=== PATIENT | female | born 1940 | race Caucasian/White ===

== ENCOUNTER 2021-04-12 16:40 | Emergency (ER) | payer MEDICARE, OTHER ==
[~2021-04-12] VITALS: Ht 233.7 cm; Wt 96.0 kg
[~2021-04-12 16:40] MED LIST: ACET-812 PO; ASPI-845 PO; BIMA2.5D EACHEYE; BIOT5TAB PO; CALC-499 PO; CHOL100046 PO; CHOL400T32 PO; DIAZ5TAB PO; DIO80T PO; DOCU-348 PO; ESOM40CA49 PO; FURO-149 PO; HYDR-4383 PO; IRON SUPPLEMENT; LORA1TAB PO; MIANS NS; MYLANTA; OMEG1CAP21 PO; ONDA4TAB6 PO; POTA10TA15 PO; PREVCR VG; [UNRECOGNIZED DRUG - CODE] PO
[2021-04-12 18:42] LABS: HEMOGLOBIN 17.2 g/dl (12.0-16.0); MEAN PLATELET VOLUME 7.2 FL (7.4-10.4)
[2021-04-12 18:45] LABS: BASOPHILS # (AUTO) 0.1 X10'3 (0-0.2); BASOPHILS % (AUTO) 0.3 % (0-1); EOSINOPHILS % (AUTO) 0.1 % (0-6); LYMPHOCYTES # (AUTO) 0.6 X10'3 (1.1-4.8); LYMPHOCYTES % (AUTO) 3.5 % (21-51); MEAN CORPUSCULAR HEMOGLOBIN 29.7 PG (27.0-31.0); MEAN CORPUSCULAR HGB CONC 33.1 g/dL (33.0-36.5); MEAN CORPUSCULAR VOLUME 89.7 FL (78-98); MONOCYTES # (AUTO) 0.7 X10'3 (0-0.9); MONOCYTES % (AUTO) 4.3 % (2-12); NEUTROPHILS % (AUTO) 91.8 % (42-75); PLATELET COUNT 247 X10'3 (140-440); RED CELL DISTRIBUTION WIDTH 16.3 % (11.5-14.5); WHITE BLOOD COUNT 17.4 X10'3 (4.5-11.0)
[2021-04-12 18:56] LABS: PARTIAL THROMBOPLASTIN TIME 27 SECONDS (22-32)
[2021-04-12 19:00] LABS: CLARITY,URINE SLIGHTLY CLOUDY (Clear); COLOR,URINE YELLOW (Yellow); GLUCOSE, URINE NEGATIVE (Neg); KETONES,URINE NEGATIVE (Neg); OCCULT BLOOD,URINE SMALL (Neg); PROTEIN,URINE 100 mg/dl (Neg); UA COLLECTION TYPE CLN CATCH MIDSTREAM
[2021-04-12 19:01] LABS: LEUKOCYTE ESTERASE ,URINE NEGATIVE (Neg); NITRITES, URINE NEGATIVE (Neg); UROBILINOGEN,URINE 0.2 E.U/dL (0.2-1.0)
[2021-04-12 19:03] LABS: BACTERIA,URINE FEW /HPF (Neg); MUCUS STRANDS NONE SEEN /LPF (Neg); SQUAMOUS EPITHELIAL CELL,UR FEW /LPF (FEW); WBC,URINE 0-4 /HPF (0-4)
[2021-04-12 19:03] LABS: ALANINE AMINOTRANSFERASE 25 U/L (12-78); ALBUMIN 3.7 G/DL (3.4-5.0); ALBUMIN/GLOBULIN RATIO 0.9 (1.1-1.5); ALKALINE PHOSPHATASE 75 IU/L (46-116); ANION GAP 11 (8-16); ASPARTATE AMINO TRANSFERASE 24 U/L (10-37); BILIRUBIN,TOTAL 0.7 MG/DL (0.1-1.0); BLOOD UREA NITROGEN 16 MG/DL (7-18); BUN/CREATININE RATIO 16.8 (6.6-38.0); CHLORIDE 102 MMOL/L (99-107); CREATININE 0.95 MG/DL (0.40-0.90); GLUCOSE 143 MG/DL (70-104); POTASSIUM 3.8 MMOL/L (3.5-5.1); SODIUM 140 MMOL/L (135-145); TOTAL CARBON DIOXIDE 26.8 MMOL/L (24-32); eGFR 56 ML/MIN
[2021-04-12 19:04] LABS: AMORPHOUS PHOSPHATES 1+
[2021-04-12] MEDS ORDERED: iohexol 300mg/ml 100ml inj. ONE (19:14)
[2021-04-12] MEDS: proCHLORperazine 10 MG/2 ml inj IV ONE (19:32)
[2021-04-12 19:42] LABS: PLATELET ESTIMATE NORMAL; TOTAL CELLS COUNTED 100
[2021-04-12 19:43] LABS: ANISOCYTOSIS 1+
--- NOTE | 2021-04-12 19:47 | NUR ---
Notified doctor of patient's elevated BP of 198/80. Doctor acknowledged. No new orders at this time.
[2021-04-12] MEDS ORDERED: AMLO1CAP77 PO (19:49)
[2021-04-12] MEDS ORDERED: LOSA25TA96 PO (19:52)
[2021-04-12] MEDS ORDERED: CIPR-259 PO (21:44)
[2021-04-12 22:29] VITALS: BP 113/60
== END 2021-04-12 22:31 | disposition home or self-care (01) ==
LOC: ER 16:40
DX: K52.9 Noninfective gastroenteritis and colitis, unspecified (principal); I10 Essential (primary) hypertension; Z98.890 Other specified postprocedural states; Z88.2 Allergy status to sulfonamides; Z88.8 Allergy status to other drugs, medicaments and biological substances; Z79.899 Other long term (current) drug therapy; Z79.82 Long term (current) use of aspirin
CPT/HCPCS: 36415; 74177; 80053; 81001; 84484; 85007; 85025; 85610; 85730; 86885; 86900; 86901; 93005; 96374; 99285; J0780; Q9967

== ENCOUNTER 2021-04-27 11:45 | Emergency (ER) | payer MEDICARE, OTHER ==
[~2021-04-27] VITALS: Ht 160 cm; Wt 97.7 kg
[~2021-04-27 11:45] MED LIST changes: +AMLO1CAP77 PO; +LOSA25TA96 PO
[2021-04-27 12:05] VITALS: BP 156/62
[2021-04-27 12:23] LABS: CLARITY,URINE CLEAR (Clear); GLUCOSE, URINE NEGATIVE (Neg); KETONES,URINE NEGATIVE (Neg); LEUKOCYTE ESTERASE ,URINE NEGATIVE (Neg); NITRITES, URINE NEGATIVE (Neg); OCCULT BLOOD,URINE NEGATIVE (Neg); PROTEIN,URINE NEGATIVE (Neg); UROBILINOGEN,URINE 0.2 E.U/dL (0.2-1.0)
[2021-04-27 12:24] LABS: COLOR,URINE STRAW (Yellow); UA COLLECTION TYPE NON-SPECIFIED
[2021-04-27 12:32] LABS: BASOPHILS % (AUTO) 0.3 % (0-1); EOSINOPHILS % (AUTO) 0.8 % (0-6); HEMATOCRIT 43.6 % (35.0-45.0); HEMOGLOBIN 14.2 g/dl (12.0-16.0); LYMPHOCYTES # (AUTO) 0.6 X10'3 (1.1-4.8); LYMPHOCYTES % (AUTO) 11.2 % (21-51); MEAN CORPUSCULAR HEMOGLOBIN 29.2 PG (27.0-31.0); MEAN CORPUSCULAR HGB CONC 32.6 g/dL (33.0-36.5); MEAN CORPUSCULAR VOLUME 89.8 FL (78-98); MEAN PLATELET VOLUME 6.8 FL (7.4-10.4); MONOCYTES % (AUTO) 18.9 % (2-12); NEUTROPHILS # (AUTO) 3.8 X10'3 (1.8-7.7); NEUTROPHILS % (AUTO) 68.8 % (42-75); PLATELET COUNT 337 X10'3 (140-440); RED BLOOD COUNT 4.86 X10'6 (4.20-5.60); RED CELL DISTRIBUTION WIDTH 15.8 % (11.5-14.5); WHITE BLOOD COUNT 5.5 X10'3 (4.5-11.0)
--- NOTE | 2021-04-27 12:33 | NUR ---
Voided x 2 per bedside commode. Pt took immodium prior to coming to the ER.
[2021-04-27 12:48] LABS: ALANINE AMINOTRANSFERASE 27 U/L (12-78); ALBUMIN 2.7 G/DL (3.4-5.0); ALBUMIN/GLOBULIN RATIO 0.6 (1.1-1.5); ALKALINE PHOSPHATASE 102 IU/L (46-116); ANION GAP 9 (8-16); ASPARTATE AMINO TRANSFERASE 23 U/L (10-37); BILIRUBIN,TOTAL 0.4 MG/DL (0.1-1.0); BLOOD UREA NITROGEN 17 MG/DL (7-18); BUN/CREATININE RATIO 16.7 (6.6-38.0); CALCIUM 8.4 MG/DL (8.5-10.1); CHLORIDE 102 MMOL/L (99-107); CREATININE 1.02 MG/DL (0.40-0.90); GLUCOSE 118 MG/DL (70-104); LIPASE < 50 U/L (73-393); POTASSIUM 4.1 MMOL/L (3.5-5.1); SODIUM 137 MMOL/L (135-145); TOTAL CARBON DIOXIDE 25.8 MMOL/L (24-32); TOTAL PROTEIN 6.9 G/DL (6.4-8.2); eGFR 52 ML/MIN
[2021-04-27 12:57] LABS: PLATELET ESTIMATE NORMAL; TOTAL CELLS COUNTED 100
[2021-04-27] MEDS ORDERED: LOSA50TA3 PO (12:58)
[2021-04-27] MEDS ORDERED: LOPE-190 (12:58)
[2021-04-27] MEDS ORDERED: BIFI4CAP PO (12:58)
[2021-04-27] MEDS ORDERED: metroNIDAZOLE-Flagyl 500mg/NS 100 ML IV STA (14:58)
[2021-04-27] MEDS ORDERED: normal saline 1000ML IV soln IVB ONE (15:00)
[2021-04-27] MEDS ORDERED: iohexol 300mg/ml 100ml inj. ONE (15:59)
[2021-04-27] MEDS ORDERED: LEVO500T90 PO (17:48)
[2021-04-27] MEDS ORDERED: METR-159 PO (17:48)
[2021-04-27] MEDS ORDERED: levoFLOXACIN 250mg tablet PO ONE (18:40)
== END 2021-04-27 19:15 | disposition home or self-care (01) ==
LOC: ER 11:46
DX: K52.9 Noninfective gastroenteritis and colitis, unspecified (principal); R19.7 Diarrhea, unspecified; I11.0 Hypertensive heart disease with heart failure; Z85.9 Personal history of malignant neoplasm, unspecified; Z79.2 Long term (current) use of antibiotics; Z79.899 Other long term (current) drug therapy; Z88.8 Allergy status to other drugs, medicaments and biological substances; Z88.2 Allergy status to sulfonamides; Z91.018 Allergy to other foods
CPT/HCPCS: 74177; 80053; 81003; 83690; 85007; 85025; 96365; 96366; 99285; J3490; J7030; Q9967

== ENCOUNTER 2021-08-15 12:16 | Inpatient (IN) | payer MEDICARE, OTHER ==
[~2021-08-15] VITALS: Ht 162.6 cm; Wt 96.4 kg
[~2021-08-15 12:16] MED LIST changes: -ASPI-845 PO; +BIFI4CAP PO; -CHOL400T32 PO; -DIO80T PO; +LOPE-190; +LOSA50TA3 PO; -OMEG1CAP21 PO
[2021-08-15 13:44] LABS: CLARITY,URINE CLOUDY (Clear); COLOR,URINE YELLOW (Yellow); GLUCOSE, URINE NEGATIVE (Neg); KETONES,URINE NEGATIVE (Neg); LEUKOCYTE ESTERASE ,URINE TRACE (Neg); NITRITES, URINE NEGATIVE (Neg); OCCULT BLOOD,URINE SMALL (Neg); PH,URINE 6.5 (4.8-8.0); PROTEIN,URINE 100 mg/dl (Neg); UROBILINOGEN,URINE 0.2 E.U/dL (0.2-1.0)
[2021-08-15 13:46] LABS: URINE HCG NEGATIVE (NEG)
[2021-08-15 13:47] LABS: UA COLLECTION TYPE OTHER
[2021-08-15 13:58] LABS: BASOPHILS % (AUTO) 0.1 % (0-1); EOSINOPHILS # (AUTO) 0.1 X10'3 (0-0.9); EOSINOPHILS % (AUTO) 1.1 % (0-6); HEMOGLOBIN 15.3 g/dl (12.0-16.0); LYMPHOCYTES # (AUTO) 0.7 X10'3 (1.1-4.8); LYMPHOCYTES % (AUTO) 6.8 % (21-51); MEAN CORPUSCULAR HEMOGLOBIN 27.7 PG (27.0-31.0); MEAN CORPUSCULAR HGB CONC 32.6 g/dL (33.0-36.5); MEAN PLATELET VOLUME 6.9 FL (7.4-10.4); MONOCYTES # (AUTO) 0.6 X10'3 (0-0.9); NEUTROPHILS # (AUTO) 9.1 X10'3 (1.8-7.7); PLATELET COUNT 354 X10'3 (140-440); RED BLOOD COUNT 5.53 X10'6 (4.20-5.60); RED CELL DISTRIBUTION WIDTH 17.6 % (11.5-14.5); WHITE BLOOD COUNT 10.5 X10'3 (4.5-11.0)
[2021-08-15 14:01] LABS: BACTERIA,URINE 2+ /HPF (Neg); HYALINE CASTS 0-3 /LPF (NEGATIVE); MUCUS STRANDS FEW /LPF (Neg); RBC,URINE 0-2 /HPF (0-2); SQUAMOUS EPITHELIAL CELL,UR FEW /LPF (FEW); WBC,URINE 0-4 /HPF (0-4)
[2021-08-15 14:18] LABS: ALANINE AMINOTRANSFERASE 16 U/L (12-78); ALBUMIN 3.5 G/DL (3.4-5.0); ALBUMIN/GLOBULIN RATIO 0.8 (1.1-1.5); ALKALINE PHOSPHATASE 66 IU/L (46-116); ANION GAP 6 (8-16); ASPARTATE AMINO TRANSFERASE 19 U/L (10-37); BILIRUBIN,TOTAL 0.3 MG/DL (0.1-1.0); BLOOD UREA NITROGEN 17 MG/DL (7-18); CALCIUM 8.7 MG/DL (8.5-10.1); CHLORIDE 105 MMOL/L (99-107); CREATININE 0.74 MG/DL (0.40-0.90); GLUCOSE 127 MG/DL (70-104); LIPASE 117 U/L (73-393); SODIUM 138 MMOL/L (135-145); TOTAL PROTEIN 7.8 G/DL (6.4-8.2); eGFR 75 ML/MIN
[2021-08-15] MEDS ORDERED: cefTRIAXone 1g/NS 100ml IVPB 100 ML IV ONE (16:50)
[2021-08-15] MEDS ORDERED: morphine 4 MG/ML inj SYRINge IV ONE (17:00)
[2021-08-15] MEDS ORDERED: hydrALAZINE 20mg/ml inj. IV ONE (17:05)
[2021-08-15] MEDS ORDERED: acetaminophen 325mg tablet PO ONE (18:40)
[2021-08-15] MEDS ORDERED: proCHLORperazine 10 MG/2 ml inj IV ONE (18:40)
[2021-08-15] MEDS ORDERED: normal saline 1000ml 1,000 ML IV ONE (18:40)
[2021-08-15] MEDS ORDERED: ketorolac trometh. 30mg/ml inj. IV ONE (18:40)
[2021-08-15 21:25] LABS: URINE AMPHETAMINE SCREEN NEGATIVE (Neg); URINE BARBITUATE SCREEN NEGATIVE (Neg); URINE BENZODIAZEPINES SCREEN NEGATIVE (Neg); URINE CANNABINOID SCREEN NEGATIVE (Neg); URINE COCAINE SCREEN NEGATIVE (Neg); URINE METHADONE SCREEN NEGATIVE (Neg); URINE OPIATE SCREEN POSITIVE (Neg); URINE PHENCYCLIDINE SCREEN NEGATIVE (Neg)
[2021-08-15] MEDS ORDERED: acetaminophen 325mg tablet PO PRN ×2 (21:30)
[2021-08-15] MEDS ORDERED: bisacodyl 10mg suppository rectal RC PRN (21:30)
[2021-08-15] MEDS ORDERED: magnesium 2GM in 50ml NS 50 ML IV PRN (21:30)
[2021-08-15] MEDS ORDERED: potassium Cl 20 mEq SR tablet PO PRN (21:30)
[2021-08-15] MEDS ORDERED: morphine 2 MG/ML inj. syringe IV PRN (21:30)
[2021-08-15] MEDS ORDERED: magnesium Cl slow-release 64mg tablet PO PRN (21:30)
[2021-08-15] MEDS ORDERED: ondansetron/PF 4mg/2ml inj IV PRN (21:30)
[2021-08-15] MEDS ORDERED: potassium CL 10mEq/100ml bag 100 ML IV PRN (21:30)
[2021-08-15] MEDS ORDERED: magnesium 4gm in 100ml NS 100 ML IV PRN (21:30)
[2021-08-15] MEDS ORDERED: mag hydrox/Alum hydrox/simeth 30ml oral suspension PO PRN (21:30)
[2021-08-15] MEDS ORDERED: magnesium hydroxide 30ml (MOM) UD suspension PO PRN (21:30)
[2021-08-15] MEDS: losartan 50mg tablet PO SCH (22:03)
[2021-08-15] MEDS: ciprofloxacin 250mg tablet PO SCH (22:03)
[2021-08-15] MEDS: normal saline 1000ml 1,000 ML IV SCH ×2 (22:04→23:35)
[2021-08-15] MEDS ORDERED: AMLO5TAB16 PO (22:33)
[2021-08-15] MEDS: latanoprost 0.005% 2.5ml ophthalmic drops EACHEYE SCH (22:52)
--- NOTE | 2021-08-15 23:13 | NUR ---
REPORT GIVEN TO CHARGE NURSE 348
[2021-08-15 23:45] VITALS: BP 153/53
--- NOTE | 2021-08-16 06:58 | NUR ---
Patient in room RILEY 348. I have received report from Yokasta HARDEN and had the opportunity to ask questions and assume patient care. Pt in bed awake, skin check done together. No reports of needs, call light in reach, bed low 3 rails up.
[2021-08-16 07:00] VITALS: BP 155/95
--- NOTE | 2021-08-16 07:02 | NUR ---
Problems reprioritized. Patient report given, questions answered & plan of care reviewed with Maris Lopez. Addendum: 08/16/21 at 0702 by Mercedez Gill RN Amended: Links added.
[2021-08-16 07:04] LABS: BASOPHILS % (AUTO) 0.2 % (0-1); EOSINOPHILS % (AUTO) 0.4 % (0-6); HEMATOCRIT 44.3 % (35.0-45.0); HEMOGLOBIN 14.5 g/dl (12.0-16.0); LYMPHOCYTES # (AUTO) 0.7 X10'3 (1.1-4.8); LYMPHOCYTES % (AUTO) 6.9 % (21-51); MEAN CORPUSCULAR HEMOGLOBIN 28.1 PG (27.0-31.0); MEAN CORPUSCULAR HGB CONC 32.8 g/dL (33.0-36.5); MEAN CORPUSCULAR VOLUME 85.7 FL (78-98); MEAN PLATELET VOLUME 7.1 FL (7.4-10.4); MONOCYTES % (AUTO) 9.7 % (2-12); NEUTROPHILS # (AUTO) 8.1 X10'3 (1.8-7.7); NEUTROPHILS % (AUTO) 82.8 % (42-75); PLATELET COUNT 333 X10'3 (140-440); RED BLOOD COUNT 5.17 X10'6 (4.20-5.60); RED CELL DISTRIBUTION WIDTH 17.8 % (11.5-14.5); WHITE BLOOD COUNT 9.8 X10'3 (4.5-11.0)
[2021-08-16 07:18] LABS: ALANINE AMINOTRANSFERASE 14 U/L (12-78); ALBUMIN 3.3 G/DL (3.4-5.0); ALBUMIN/GLOBULIN RATIO 0.8 (1.1-1.5); ALKALINE PHOSPHATASE 59 IU/L (46-116); ANION GAP 7 (8-16); ASPARTATE AMINO TRANSFERASE 22 U/L (10-37); BILIRUBIN,TOTAL 0.5 MG/DL (0.1-1.0); BLOOD UREA NITROGEN 14 MG/DL (7-18); BUN/CREATININE RATIO 20.9 (6.6-38.0); CHLORIDE 107 MMOL/L (99-107); CREATININE 0.67 MG/DL (0.40-0.90); GLUCOSE 124 MG/DL (70-104); POTASSIUM 3.1 MMOL/L (3.5-5.1); SODIUM 138 MMOL/L (135-145); TOTAL CARBON DIOXIDE 23.6 MMOL/L (24-32); TOTAL PROTEIN 7.3 G/DL (6.4-8.2); eGFR 84 ML/MIN
[2021-08-16] MEDS: CALCITONIN NASAL SPRAY BOTHNARES SCH (08:00)
[2021-08-16] MEDS: losartan 50mg tablet PO SCH ×2 (08:31→12:00)
[2021-08-16] MEDS: amLODIPine 5mg tablet PO SCH (08:32)
[2021-08-16] MEDS: heparin, porcine 5000 units/ml vial SQ SCH ×2 (08:32→20:25)
[2021-08-16] MEDS: pantoprazole 40mg Tablet.DR PO SCH (08:32)
[2021-08-16] MEDS: metroNIDAZOLE-Flagyl 500mg/NS 100 ML IV SCH ×2 (08:33→20:24)
[2021-08-16] MEDS: latanoprost 0.005% 2.5ml ophthalmic drops EACHEYE SCH ×2 (08:38→08:43)
[2021-08-16] MEDS: potassium Cl 20 mEq SR tablet PO PRN ×3 (08:54→16:28)
[2021-08-16] MEDS: K and/or MAG REPLACEMENT MC SCH ×2 (08:55→20:00)
[2021-08-16] MEDS ORDERED: FLU VACC QS2021-22(6MOS UP)/PF 60 MCG/0.5 ML SYRINGE IM ONE (09:00)
--- NOTE | 2021-08-16 09:07 | NUR ---
Malnutrition consult; Pt admitted w/ uncontrolled hypertension per EMR. Pt unsure of wt loss per MST. current wt not scaled though consistent w/ previous scaled wt from 2016. Currently on Heart Healthy diet pending PO intake. No signs of muscle or fat wasting observed at bedside, no edema noted. At this time, pt does not meet minimum criteria for malnutrition. Addendum: 08/16/21 at [address] Amended: Links added.
[2021-08-16] MEDS: ciprofloxacin 250mg tablet PO SCH ×2 (10:19→20:46)
[2021-08-16] MEDS: normal saline 1000ml 1,000 ML IV SCH ×3 (10:22→20:31)
--- NOTE | 2021-08-16 11:37 | NUR ---
Problems reprioritized. Patient report given, questions answered & plan of care reviewed with Jennifer HARDEN.
[2021-08-16 13:08] VITALS: BP 146/80
[2021-08-16] MEDS ORDERED: PERFLUTREN PROTEIN-A MICROSPHR (Optison) 0.22 MG/ML 3ML VIAL IV ONE (16:05)
--- NOTE | 2021-08-16 16:10 | NUR ---
Paged and requested stroke neuro consult
[2021-08-16] MEDS: aspirin 81mg, enteric-coated 1 TAB TABLET.DR PO SCH (16:28)
[2021-08-16 16:57] LABS: CHOL/HDL RATIO 4.5 (0.00-4.99); CHOLESTEROL 191 MG/DL (0-200); HDL CHOLESTEROL 42 MG/DL (35-60); LDL CHOLESTEROL 131 MG/DL (50-100); TRIGLYCERIDES 91 MG/DL (20-135)
[2021-08-16] MEDS: psyllium seed 3.4 gm packet PO SCH (17:00)
--- NOTE | 2021-08-16 17:54 | NUR ---
Paged stroke team twice. Called Sweta Stroke Nurse at [phone]. SOC telemed is in pt's room. Endorsed and called report to DERECK Escobar for transfer.
--- NOTE | 2021-08-16 17:57 | NUR ---
MRI screening form and CT form filled and faxed. MRI stated cannot be done today as found suspicious metallic findings in lung CT.
--- NOTE | 2021-08-16 17:58 | NUR ---
Received report from Jennifer HARDEN.
--- NOTE | 2021-08-16 18:30 | NUR ---
Problems reprioritized. Patient report given, questions answered & plan of care reviewed with Bria HARDEN.
[2021-08-16] MEDS ORDERED: iohexol 350MG/ML 100ml bottle IV ONE (19:23)
--- NOTE | 2021-08-16 19:35 | NUR ---
pt has just had telemed. consult. She reports that she does not swallow well is pocketing food. Nurse notified to keep pt npo until speech therapy eval. in am. pt being transferred to telemetry bed.
[2021-08-16 22:00] VITALS: BP 163/128
[2021-08-17 02:00] VITALS: BP 177/92
--- NOTE | 2021-08-17 06:32 | NUR ---
Problems reprioritized. Patient report given, questions answered & plan of care reviewed with DERECK ARREDONDO.
--- NOTE | 2021-08-17 06:38 | NUR ---
Patient in room MED 316A. I have received report from DERECK DUNHAM and had the opportunity to ask questions and assume patient care.
[2021-08-17] MEDS: psyllium seed 3.4 gm packet PO SCH ×2 (07:00→17:00)
[2021-08-17 07:01] LABS: BASOPHILS % (AUTO) 0.2 % (0-1); EOSINOPHILS # (AUTO) 0.1 X10'3 (0-0.9); EOSINOPHILS % (AUTO) 0.9 % (0-6); HEMATOCRIT 46.8 % (35.0-45.0); HEMOGLOBIN 15.1 g/dl (12.0-16.0); LYMPHOCYTES # (AUTO) 0.8 X10'3 (1.1-4.8); MEAN CORPUSCULAR HEMOGLOBIN 27.3 PG (27.0-31.0); MEAN CORPUSCULAR HGB CONC 32.2 g/dL (33.0-36.5); MEAN CORPUSCULAR VOLUME 84.6 FL (78-98); MEAN PLATELET VOLUME 7.5 FL (7.4-10.4); MONOCYTES # (AUTO) 0.9 X10'3 (0-0.9); MONOCYTES % (AUTO) 8.2 % (2-12); NEUTROPHILS # (AUTO) 8.9 X10'3 (1.8-7.7); NEUTROPHILS % (AUTO) 83.7 % (42-75); PLATELET COUNT 364 X10'3 (140-440); RED BLOOD COUNT 5.53 X10'6 (4.20-5.60); WHITE BLOOD COUNT 10.6 X10'3 (4.5-11.0)
[2021-08-17 07:29] LABS: ALANINE AMINOTRANSFERASE 15 U/L (12-78); ALBUMIN 3.2 G/DL (3.4-5.0); ALBUMIN/GLOBULIN RATIO 0.8 (1.1-1.5); ALKALINE PHOSPHATASE 59 IU/L (46-116); ANION GAP 10 (8-16); ASPARTATE AMINO TRANSFERASE 25 U/L (10-37); BILIRUBIN,TOTAL 0.5 MG/DL (0.1-1.0); BLOOD UREA NITROGEN 16 MG/DL (7-18); CALCIUM 8.2 MG/DL (8.5-10.1); CHLORIDE 109 MMOL/L (99-107); GLUCOSE 127 MG/DL (70-104); POTASSIUM 4.1 MMOL/L (3.5-5.1); SODIUM 139 MMOL/L (135-145); TOTAL CARBON DIOXIDE 19.7 MMOL/L (24-32); TOTAL PROTEIN 7.1 G/DL (6.4-8.2); eGFR 69 ML/MIN
[2021-08-17 07:49] VITALS: BP 175/94
[2021-08-17] MEDS: K and/or MAG REPLACEMENT MC SCH ×2 (08:00→20:00)
[2021-08-17] MEDS: CALCITONIN NASAL SPRAY BOTHNARES SCH (08:00)
[2021-08-17 10:00] VITALS: BP 179/93
[2021-08-17] MEDS: ciprofloxacin 250mg tablet PO SCH ×2 (10:00→20:53)
[2021-08-17] MEDS: pantoprazole 40mg Tablet.DR PO SCH (10:00)
[2021-08-17] MEDS: aspirin 81mg, enteric-coated 1 TAB TABLET.DR PO SCH (10:00)
[2021-08-17] MEDS: heparin, porcine 5000 units/ml vial SQ SCH ×2 (10:01→20:11)
[2021-08-17] MEDS: metroNIDAZOLE-Flagyl 500mg/NS 100 ML IV SCH ×2 (10:02→20:11)
[2021-08-17] MEDS: amLODIPine 5mg tablet PO SCH (10:05)
[2021-08-17] MEDS: losartan 50mg tablet PO SCH (10:05)
[2021-08-17] MEDS: normal saline 1000ml 1,000 ML IV SCH ×2 (10:31→20:44)
--- NOTE | 2021-08-17 13:30 | NUR ---
In with doctor Espinoza. Patient and state she has had a [facility] before, at [facility]. And she sees a Dr. Jenkins at [facility]. Will call Imaging for a copy of what they have.
[2021-08-17 14:35] VITALS: BP 133/74
--- NOTE | 2021-08-17 15:07 | NUR ---
PAGER ID: [phone] MESSAGE: [phone] HenryMariselaLinda Patient had a [address] SCAN of the Chest and Abdomen at [facility] in 02/18/2017 Carbon Copy to Donte Escobar [id number]
[2021-08-17 18:10] VITALS: BP 181/86
--- NOTE | 2021-08-17 18:24 | NUR ---
Problems reprioritized. Patient report given, questions answered & plan of care reviewed with Bria HARDEN.
[2021-08-17] MEDS: latanoprost 0.005% 2.5ml ophthalmic drops EACHEYE SCH (20:11)
[2021-08-17 21:51] VITALS: BP 184/86
[2021-08-18 02:00] VITALS: BP 186/84
[2021-08-18 06:00] VITALS: BP 159/81
--- NOTE | 2021-08-18 06:35 | NUR ---
Problems reprioritized. Patient report given, questions answered & plan of care reviewed with fidel Velasquez and fidel Perez.
[2021-08-18] MEDS: psyllium seed 3.4 gm packet PO SCH ×3 (07:00→17:00)
--- NOTE | 2021-08-18 07:00 | NUR ---
Primary nurse not [facility] certified
[2021-08-18] MEDS: K and/or MAG REPLACEMENT MC SCH ×2 (08:00→20:00)
[2021-08-18] MEDS: CALCITONIN NASAL SPRAY BOTHNARES SCH (08:00)
[2021-08-18 08:15] LABS: ALANINE AMINOTRANSFERASE 16 U/L (12-78); ALBUMIN 2.9 G/DL (3.4-5.0); ALBUMIN/GLOBULIN RATIO 0.8 (1.1-1.5); ALKALINE PHOSPHATASE 55 IU/L (46-116); ANION GAP 11 (8-16); ASPARTATE AMINO TRANSFERASE 23 U/L (10-37); BILIRUBIN,TOTAL 0.4 MG/DL (0.1-1.0); BLOOD UREA NITROGEN 19 MG/DL (7-18); BUN/CREATININE RATIO 23.2 (6.6-38.0); CALCIUM 8.1 MG/DL (8.5-10.1); CHLORIDE 116 MMOL/L (99-107); CREATININE 0.82 MG/DL (0.40-0.90); GLUCOSE 132 MG/DL (70-104); SODIUM 146 MMOL/L (135-145); TOTAL PROTEIN 6.7 G/DL (6.4-8.2); eGFR 67 ML/MIN
[2021-08-18] MEDS: metroNIDAZOLE-Flagyl 500mg/NS 100 ML IV SCH ×2 (08:16→19:56)
[2021-08-18] MEDS: pantoprazole 40mg Tablet.DR PO SCH (08:18)
[2021-08-18] MEDS: heparin, porcine 5000 units/ml vial SQ SCH ×2 (08:18→19:51)
[2021-08-18] MEDS: losartan 50mg tablet PO SCH (08:19)
[2021-08-18] MEDS: aspirin 81mg, enteric-coated 1 TAB TABLET.DR PO SCH (08:19)
[2021-08-18] MEDS: amLODIPine 5mg tablet PO SCH (08:19)
[2021-08-18] MEDS: clopidogrel 75mg tablet PO SCH (08:19)
[2021-08-18 09:47] LABS: BASOPHILS % (AUTO) 0.2 % (0-1); EOSINOPHILS # (AUTO) 0.2 X10'3 (0-0.9); EOSINOPHILS % (AUTO) 1.8 % (0-6); HEMATOCRIT 45.5 % (35.0-45.0); HEMOGLOBIN 14.6 g/dl (12.0-16.0); LYMPHOCYTES # (AUTO) 0.7 X10'3 (1.1-4.8); LYMPHOCYTES % (AUTO) 5.9 % (21-51); MEAN CORPUSCULAR HEMOGLOBIN 27.7 PG (27.0-31.0); MEAN CORPUSCULAR HGB CONC 32.2 g/dL (33.0-36.5); MEAN PLATELET VOLUME 7.1 FL (7.4-10.4); MONOCYTES # (AUTO) 1.1 X10'3 (0-0.9); MONOCYTES % (AUTO) 8.7 % (2-12); NEUTROPHILS # (AUTO) 10.2 X10'3 (1.8-7.7); NEUTROPHILS % (AUTO) 83.4 % (42-75); PLATELET COUNT 327 X10'3 (140-440); RED BLOOD COUNT 5.29 X10'6 (4.20-5.60); RED CELL DISTRIBUTION WIDTH 18.5 % (11.5-14.5); WHITE BLOOD COUNT 12.2 X10'3 (4.5-11.0)
--- NOTE | 2021-08-18 10:00 | NUR ---
Patient vomited up quite a bit of green bile. Some crushed meds were visable. Suctioned patient and was able to remove several pieces of food from pockets in her mouth. No other vomiting episodes at of 1330
[2021-08-18] MEDS: normal saline 1000ml 1,000 ML IV SCH ×2 (10:34→19:57)
[2021-08-18] MEDS: ciprofloxacin 250mg tablet PO SCH ×2 (10:37→21:29)
[2021-08-18 11:00] VITALS: BP 158/92
--- NOTE | 2021-08-18 12:30 | NUR ---
Verbal order per Dr Espinoza, goal for patients BP is 150-190 systolic.
[2021-08-18] MEDS: lactose-reduced food (Ensure High Protein) 237ml bottle PO SCH ×2 (13:00→18:00)
--- NOTE | 2021-08-18 13:21 | NUR ---
Could not find patients nasal spray. Non-admin in MAR. Addendum: 08/18/21 at 1449 by Yessy Matos RN Pt educated on importance to ask family to bring nasal spray.
--- NOTE | 2021-08-18 13:56 | NUR ---
PRESSURE ULCER EDUCATION: DEFINITION: A pressure ulcer is an area of skin that breaks down when you stay in one position too long. The constant pressure against the skin reduces the blood flow to that area and the affected tissue dies. CAUSES: "Being bedridden or in a wheelchair "Fragile skin "Having a chronic condition, such as diabetes or vascular disease "Inability to move certain parts of your body without assistance "Older age "Incontinence of urine or stool SYMPTOMS: "A reddened area that DOES NOT turn white when pressed on - this can be the beginning of a pressure ulcer "A blister, deep sore or a crater - these can be advanced pressure ulcers FIRST AID: "Relieve the pressure on this area "Keep the area clean and dry "Call your primary doctor if you see any of the above symptoms "DO NOT massage the area "DO NOT use a donut shaped or ring shaped pillow- these actually interfere with the blood flow and cause complications PREVENTION: "Check for pressure ulcers everyday "Change position at least every two hours to relieve pressure "Use items that help relieve pressure- pillows, sheepskin, foam padding, and powders. "Keep skin clean and dry "Eat healthy well balanced meals "Exercise daily IF YOU SEE ANY OF THESE SYMPTOMS WHILE IN THE HOSPITAL - TELL YOUR NURSE IMMEDIATELY. IF YOU SEE ANY OF THESE SYMPTOMS WHILE AT HOME OR HAVE ANY QUESTIONS OR CONCERNS ABOUT PRESSURE ULCERS - CALL YOUR PRIMARY DOCTOR IMMEDIATELY. Addendum: 08/18/21 at 1357 by Talya Tavarez RN Amended: Links added.
[2021-08-18 15:00] VITALS: BP 157/93
--- NOTE | 2021-08-18 17:17 | NUR ---
Attempted to complete MRI screening form with patient, but she kept falling asleep. Several attempts were made, but patient is very tired after PT worked with her. Will pass off to installer apprentice to complete once patient wakes up.
[2021-08-18 18:00] VITALS: BP 156/79
[2021-08-18] MEDS: latanoprost 0.005% 2.5ml ophthalmic drops EACHEYE SCH (20:01)
[2021-08-18] MEDS: CefTRIAXone 2gm/NS 100ml IVPB 100 ML IV SCH (21:49)
[2021-08-18 22:16] VITALS: BP 183/97
--- NOTE | 2021-08-18 22:58 | NUR ---
Student documentation: I have reviewed interventions, assessments performed and documented by Miah LUBIN [facility].
[2021-08-19 02:00] VITALS: BP 180/76
[2021-08-19 06:00] VITALS: BP 164/123
[2021-08-19 07:41] LABS: BASOPHILS % (AUTO) 0.3 % (0-1); EOSINOPHILS # (AUTO) 0.3 X10'3 (0-0.9); EOSINOPHILS % (AUTO) 4.1 % (0-6); HEMATOCRIT 46.6 % (35.0-45.0); HEMOGLOBIN 15.1 g/dl (12.0-16.0); LYMPHOCYTES # (AUTO) 0.8 X10'3 (1.1-4.8); LYMPHOCYTES % (AUTO) 10.4 % (21-51); MEAN CORPUSCULAR HGB CONC 32.5 g/dL (33.0-36.5); MEAN CORPUSCULAR VOLUME 86.3 FL (78-98); MEAN PLATELET VOLUME 7.4 FL (7.4-10.4); MONOCYTES # (AUTO) 1.1 X10'3 (0-0.9); MONOCYTES % (AUTO) 14.4 % (2-12); NEUTROPHILS # (AUTO) 5.4 X10'3 (1.8-7.7); NEUTROPHILS % (AUTO) 70.8 % (42-75); PLATELET COUNT 312 X10'3 (140-440); RED CELL DISTRIBUTION WIDTH 18.4 % (11.5-14.5); WHITE BLOOD COUNT 7.6 X10'3 (4.5-11.0)
[2021-08-19] MEDS: psyllium seed 3.4 gm packet PO SCH ×2 (07:52→17:30)
[2021-08-19] MEDS: clopidogrel 75mg tablet PO SCH (07:52)
[2021-08-19] MEDS: losartan 50mg tablet PO SCH (07:52)
[2021-08-19] MEDS: amLODIPine 5mg tablet PO SCH (07:52)
[2021-08-19] MEDS: pantoprazole 40mg Tablet.DR PO SCH (07:52)
[2021-08-19] MEDS: heparin, porcine 5000 units/ml vial SQ SCH ×2 (07:53→19:30)
[2021-08-19] MEDS: metroNIDAZOLE-Flagyl 500mg/NS 100 ML IV SCH (07:56)
[2021-08-19] MEDS: aspirin 81mg tab.chew PO SCH (07:56)
[2021-08-19] MEDS: normal saline 1000ml 1,000 ML IV SCH (07:56)
[2021-08-19] MEDS: CefTRIAXone 2gm/NS 100ml IVPB 100 ML IV SCH (07:56)
[2021-08-19] MEDS: K and/or MAG REPLACEMENT MC SCH ×2 (08:00→19:30)
[2021-08-19] MEDS: CALCITONIN NASAL SPRAY BOTHNARES SCH (08:00)
[2021-08-19] MEDS: lactose-reduced food (Ensure High Protein) 237ml bottle PO SCH ×3 (08:07→18:13)
[2021-08-19 08:16] LABS: ALANINE AMINOTRANSFERASE 17 U/L (12-78); ALBUMIN 2.8 G/DL (3.4-5.0); ALBUMIN/GLOBULIN RATIO 0.7 (1.1-1.5); ALKALINE PHOSPHATASE 55 IU/L (46-116); ANION GAP 13 (8-16); ASPARTATE AMINO TRANSFERASE 22 U/L (10-37); BILIRUBIN,TOTAL 0.4 MG/DL (0.1-1.0); BLOOD UREA NITROGEN 17 MG/DL (7-18); BUN/CREATININE RATIO 22.4 (6.6-38.0); CALCIUM 8.1 MG/DL (8.5-10.1); CHLORIDE 116 MMOL/L (99-107); CREATININE 0.76 MG/DL (0.40-0.90); GLUCOSE 124 MG/DL (70-104); POTASSIUM 3.7 MMOL/L (3.5-5.1); SODIUM 149 MMOL/L (135-145); eGFR 73 ML/MIN
--- NOTE | 2021-08-19 09:46 | NUR ---
Initial: Pt admitted w/ possible CVA, proctitis, and uncontrolled hypertension per EMR, Currently on Puree/NTL per ENROLLMENT PROCESSOR recs and Heart healthy diet w/ low PO intake, avg 42% x 8 meals. Ensure High protein TID has been ordered 08/18 and pt has consumed 100% of first 2 ONS. If PO trends continue pt will be meeting 100% of est protein and energy needs. Recommend liberalizing to Regular diet given age and no significant diet-related cardiac hx in EMR, w/ Puree and NTL per ENROLLMENT PROCESSOR recs. Pt also noted to need feeder. LBM 08/17 w/ PRN bowel care given. No nutrition intervention implemented at this time, will continue to monitor. Recs: 1. Continue Puree/NTL per ENROLLMENT PROCESSOR recs, liberalize to Regular 2. Ensure High protein TID 3. Bowel care per rx 4. Scaled wts Addendum: 08/19/21 at [address] Amended: Links added.
[2021-08-19 10:00] VITALS: BP 151/68
[2021-08-19] MEDS: ciprofloxacin 250mg tablet PO SCH ×2 (10:33→19:59)
[2021-08-19] MEDS ORDERED: furosemide 20 MG/2 ML vial IV ONE (11:40)
--- NOTE | 2021-08-19 14:19 | NUR ---
MRI still waiting validation of the coils implanted in the patients head, that they are compatible. Dr. Espinoza spoke with her doctor at [facility] Dr. Donte Reynoso, and he stated she has had 14 MRIs since 2007. We have now faxed [facility] for medical records, and validation of the coils compatiblity.
--- NOTE | 2021-08-19 14:21 | NUR ---
Faxed STAT release of med authorization to [facility] fax # [phone]. Signed by sister Suyapa.
--- NOTE | 2021-08-19 14:24 | NUR ---
Contacted [facility] to see if pt has ever had an MRI - pt has NOT.
[2021-08-19 15:00] VITALS: BP 137/51
[2021-08-19] MEDS: hyDRALAzine 10mg tablet PO SCH (15:21)
--- NOTE | 2021-08-19 17:22 | NUR ---
We have faxed multiple requests to [facility] fax #'s [phone], , , . We have also called them and they have given us fax #'s that match these. We have faxed multiple times with responses as busy. Will continue to fax.
--- NOTE | 2021-08-19 18:12 | NUR ---
Problems reprioritized. Patient report given, questions answered & plan of care reviewed with DERECK Watts.
[2021-08-19] MEDS: metroNIDAZOLE 500mg tablet PO SCH (19:29)
[2021-08-19] MEDS: latanoprost 0.005% 2.5ml ophthalmic drops EACHEYE SCH (20:00)
--- NOTE | 2021-08-19 20:17 | NUR ---
Pt meets the dc telemetry criteria per policy. Tona Mabry but he did not respond. dc'ng telemetry.
--- NOTE | 2021-08-19 20:39 | NUR ---
Able to tell Dr. Mabry about tele dc.
[2021-08-19] MEDS: HYDROcodone/acetaminophen 5mg/325mg tablet PO PRN (21:48)
[2021-08-20] VITALS (19 sets, daily range): BP systolic 135–202; BP diastolic 57–101
[2021-08-20] MEDS: hyDRALAzine 10mg tablet PO SCH ×3 (00:26→17:20)
[2021-08-20 06:06] LABS: BASOPHILS % (AUTO) 0.3 % (0-1); EOSINOPHILS # (AUTO) 0.7 X10'3 (0-0.9); EOSINOPHILS % (AUTO) 11.5 % (0-6); HEMATOCRIT 46.7 % (35.0-45.0); HEMOGLOBIN 15.1 g/dl (12.0-16.0); LYMPHOCYTES # (AUTO) 0.9 X10'3 (1.1-4.8); LYMPHOCYTES % (AUTO) 14.8 % (21-51); MEAN CORPUSCULAR HEMOGLOBIN 27.8 PG (27.0-31.0); MEAN CORPUSCULAR HGB CONC 32.3 g/dL (33.0-36.5); MEAN CORPUSCULAR VOLUME 86.1 FL (78-98); MEAN PLATELET VOLUME 7.6 FL (7.4-10.4); MONOCYTES % (AUTO) 17.1 % (2-12); NEUTROPHILS # (AUTO) 3.3 X10'3 (1.8-7.7); NEUTROPHILS % (AUTO) 56.3 % (42-75); PLATELET COUNT 328 X10'3 (140-440); RED BLOOD COUNT 5.42 X10'6 (4.20-5.60); RED CELL DISTRIBUTION WIDTH 18.4 % (11.5-14.5); WHITE BLOOD COUNT 5.9 X10'3 (4.5-11.0)
--- NOTE | 2021-08-20 06:28 | NUR ---
Received report from DERECK Grande
[2021-08-20 06:32] LABS: ALANINE AMINOTRANSFERASE 14 U/L (12-78); ALBUMIN 2.8 G/DL (3.4-5.0); ALBUMIN/GLOBULIN RATIO 0.7 (1.1-1.5); ALKALINE PHOSPHATASE 56 IU/L (46-116); ANION GAP 9 (8-16); ASPARTATE AMINO TRANSFERASE 20 U/L (10-37); BILIRUBIN,TOTAL 0.4 MG/DL (0.1-1.0); BLOOD UREA NITROGEN 19 MG/DL (7-18); BUN/CREATININE RATIO 22.1 (6.6-38.0); CALCIUM 8.6 MG/DL (8.5-10.1); CHLORIDE 116 MMOL/L (99-107); CREATININE 0.86 MG/DL (0.40-0.90); GLUCOSE 123 MG/DL (70-104); POTASSIUM 3.3 MMOL/L (3.5-5.1); SODIUM 148 MMOL/L (135-145); TOTAL CARBON DIOXIDE 23.2 MMOL/L (24-32); TOTAL PROTEIN 6.8 G/DL (6.4-8.2); eGFR 63 ML/MIN
[2021-08-20 06:44] LABS: TOTAL CELLS COUNTED 100
[2021-08-20 06:45] LABS: ANISOCYTOSIS 2+; PLATELET ESTIMATE NORMAL; TOXIC GRANULATION 2+; TOXIC VACUOLATION FEW
[2021-08-20 06:46] LABS: LARGE PLATELETS FEW
[2021-08-20] MEDS: CALCITONIN NASAL SPRAY BOTHNARES SCH (07:22)
[2021-08-20] MEDS: losartan 50mg tablet PO SCH (07:34)
[2021-08-20] MEDS: metroNIDAZOLE 500mg tablet PO SCH ×2 (07:34→21:01)
[2021-08-20] MEDS: atorvastatin 20mg tablet PO SCH (07:35)
[2021-08-20] MEDS: heparin, porcine 5000 units/ml vial SQ SCH (07:35)
[2021-08-20] MEDS: clopidogrel 75mg tablet PO SCH (07:35)
[2021-08-20] MEDS: aspirin 81mg tab.chew PO SCH (07:35)
[2021-08-20] MEDS: pantoprazole 40mg Tablet.DR PO SCH (07:35)
[2021-08-20] MEDS: psyllium seed 3.4 gm packet PO SCH ×2 (07:36→17:22)
[2021-08-20] MEDS: CefTRIAXone 2gm/NS 100ml IVPB 100 ML IV SCH (07:56)
[2021-08-20] MEDS: K and/or MAG REPLACEMENT MC SCH ×2 (08:00→21:01)
--- NOTE | 2021-08-20 08:24 | NUR ---
PAGER ID: [phone] MESSAGE: [phone], Milan K is 3.3, can I get replacement please? yesenia [phone]
[2021-08-20] MEDS: lactose-reduced food (Ensure High Protein) 237ml bottle PO SCH ×3 (08:27→18:00)
[2021-08-20] MEDS ORDERED: magnesium Cl slow-release 64mg tablet PO PRN (09:25)
[2021-08-20] MEDS ORDERED: magnesium 4gm in 100ml NS 100 ML IV PRN (09:25)
[2021-08-20] MEDS ORDERED: magnesium 2GM in 50ml NS 50 ML IV PRN (09:25)
[2021-08-20] MEDS: potassium cl 20mEq in 1/2 NS 1,000 ML IV SCH ×2 (09:25→23:43)
[2021-08-20] MEDS ORDERED: potassium Cl 20 mEq SR tablet PO PRN ×2 (09:25)
--- NOTE | 2021-08-20 09:40 | NUR ---
Called [facility] regarding mri compatibility and coils in head, rep states info was faxed, never received fax and is not present in patients paper chart.
[2021-08-20] MEDS: potassium CL 10mEq/100ml bag 100 ML IV PRN ×4 (10:01→17:22)
--- NOTE | 2021-08-20 10:42 | NUR ---
[facility] confirms medical release was received, states record turn around time is 2-4 hours
[2021-08-20] MEDS ORDERED: POTA-205 PO (10:44)
[2021-08-20] MEDS ORDERED: ACET-1995 PO (10:44)
[2021-08-20] MEDS ORDERED: ONDA-103 PO (10:44)
[2021-08-20] MEDS ORDERED: HYDR-3972 PO (10:44)
[2021-08-20] MEDS ORDERED: FURO40TA4 PO (10:44)
[2021-08-20] MEDS ORDERED: PREVCR VG (10:44)
--- NOTE | 2021-08-20 11:49 | NUR ---
Received report from DERECK Romo Addendum: 08/20/21 at 1157 by Puja Brown RN wrong patient
--- NOTE | 2021-08-20 12:53 | NUR ---
received reports from [facility] and faxed to mri, they only sent imaging records not a make or model of coils placed.
--- NOTE | 2021-08-20 13:51 | NUR ---
per [facility] they do not have record of coils, relayed this to MRI. MRI to clear procedure with loading and unloading supervisor as patients has had many mris at [facility] which i have all of the records for.
[2021-08-20] MEDS: ciprofloxacin 250mg tablet PO SCH ×2 (15:13→21:01)
[2021-08-20] MEDS: furosemide 20MG tablet PO SCH (15:15)
--- NOTE | 2021-08-20 15:29 | NUR ---
PAGER ID: [phone] MESSAGE: [phone] Milan, I have done alot of leg work to make this MRI happen, [facility] finally sent fax but did not send model of coils. Radiologist said he is comfortable doing it but its up to you as it is a risk and needs to be noted by you yesenia [phone]
--- NOTE | 2021-08-20 15:33 | NUR ---
PAGER ID: [phone] MESSAGE: [phone], White they have time to do the MRI now just need it okayed by you and it needs to be noted in your note for today. yesenia [phone]
--- NOTE | 2021-08-20 15:36 | NUR ---
Hospitalist to call MRI regarding the matter.
--- NOTE | 2021-08-20 16:22 | NUR ---
Hospitalist updated on mri requirements that they must document that they understand the risk of mri, they are in agreeance with this. patient in mri now
--- NOTE | 2021-08-20 18:04 | NUR ---
Sister at bedside this morning wanted me to inquire about MRI and if it were to be done today, patient transferred from another floor late yesterday 08/19, RN yesterday PER RN NOTES had tried to get records from [facility] but was unsuccesful. This RN called [facility] this morning and got their correct fax #, they stated that they had sent records. Went to [facility] unit where patient was previously and there was no fax on printer. Release resent to [facility], they sent records of past MRIs not anything about model of coils that the maintenance service technician was instent on getting to make sure that the patients coils were compatible with MRI. Advised that [facility] had no documentation of said coils and that they were placed in 1992 per patient, MRI stated understanding. Also advised that Dr. Leiva progress note stated she talked to her neurosurgeon and that he stated himself it was okay to do MRI (in progress notes). MRI then called this RN and stated that the hospitalist needed to make a note that they accepted the risk of proceeding with MRI as we did not know the model of her coils. Paged hospitalist 2 times because messages were too great to fit into one message. Hospitalist came to floor wrote down this RNs name and interrogated why i paged her two times. Tried to explain situation and what I had done to help this patient get her MRI. All in all message was received and MRI was then succesfully completed.
--- NOTE | 2021-08-20 18:24 | NUR ---
Patient in room RILEY 346. I have received report from DERECK Luo and had the opportunity to ask questions and assume patient care.
--- NOTE | 2021-08-20 18:39 | NUR ---
PAGER ID: [phone] MESSAGE: BeeA, Milan, mri done, report reads "Intraparenchymal hematoma versus hemorrhagic infarction noted in the right half of the mary extending into the right cerebellar peduncle measuring approximately 2.9 x 1.7 cm." yesenia [phone]
--- NOTE | 2021-08-20 18:53 | NUR ---
spoke on phone with radiologist regarding critical findings on CT scan. hospitalist does not feel she needs immediate transfer at this time, patient has been hypertensive all day, vital signs and neuro check changed to Q4 hours, stroke nurse notified and repeat tele neuro being done.
--- NOTE | 2021-08-20 19:06 | NUR ---
gave report to darío, spoke to margarita HARDEN regarding patient, noted tele transfer
--- NOTE | 2021-08-20 19:18 | NUR ---
Spoke with Dr. Bell, STAT head CT to be ordered and he requests to be called when it is done at [phone], CT called and will come in 10 minutes when teleneuro is finished.
--- NOTE | 2021-08-20 19:18 | NUR ---
noted icu transfer
--- NOTE | 2021-08-20 19:29 | NUR ---
ct here to take patient down
--- NOTE | 2021-08-20 19:31 | NUR ---
Called and let family know update. Spoke to sister Suyapa as husbands phone was off, relayed message to .
--- NOTE | 2021-08-20 20:30 | NUR ---
PATIENT ARRIVED TO UNIT ALERT AND ORIENTED. NO C/O OF PAIN NO DISTRESS NOTED. LEFT SIDE FACIAL DROOP AND SLURRED SPEECH. GENERALIZED WEAKNESS NOTED WITH RIGHT HAND WIRE LATHER SLIGHTLY STRONGER. ABLE TO MOVE TOES AND SLIGHT MOVE LEGS BUT NOT LIFT. ON ROOM AIR AT THIS TIME.
[2021-08-20] MEDS: latanoprost 0.005% 2.5ml ophthalmic drops EACHEYE SCH (21:01)
--- NOTE | 2021-08-20 21:40 | NUR ---
SISTER RENUKA CALLED UNIT FOR UPDATE. PATIENT VERIFIED NURSE CAN GIVE UPDATE
[2021-08-20] MEDS: potassium chloride 10mEq ER tablet PO SCH (21:49)
[2021-08-20] MEDS: niCARDipine-NS 40mg/200ml IVPB 200 ML IV SCH (22:18)
[2021-08-21] VITALS (27 sets, daily range): BP systolic 112–165; BP diastolic 49–81
--- NOTE | 2021-08-21 00:30 | NUR ---
NO CHANGES TO NEURO STATUS AT THIS TIME, RESTING WITH EYES NOTED TO BE SNORING LOUDLY WITH SATS DROPPING TO HIGH 80s BUT QUICKLY RECOVERS
[2021-08-21] MEDS: niCARDipine-NS 40mg/200ml IVPB 200 ML IV SCH ×3 (05:50→22:21)
[2021-08-21 06:16] LABS: BASOPHILS % (AUTO) 0.3 % (0-1); EOSINOPHILS # (AUTO) 0.6 X10'3 (0-0.9); EOSINOPHILS % (AUTO) 9.6 % (0-6); HEMATOCRIT 45.9 % (35.0-45.0); HEMOGLOBIN 14.8 g/dl (12.0-16.0); LYMPHOCYTES # (AUTO) 0.8 X10'3 (1.1-4.8); LYMPHOCYTES % (AUTO) 12.7 % (21-51); MEAN CORPUSCULAR HEMOGLOBIN 27.4 PG (27.0-31.0); MEAN CORPUSCULAR HGB CONC 32.2 g/dL (33.0-36.5); MEAN CORPUSCULAR VOLUME 84.9 FL (78-98); MEAN PLATELET VOLUME 7.7 FL (7.4-10.4); MONOCYTES % (AUTO) 16.1 % (2-12); NEUTROPHILS # (AUTO) 3.9 X10'3 (1.8-7.7); NEUTROPHILS % (AUTO) 61.3 % (42-75); PLATELET COUNT 344 X10'3 (140-440); RED BLOOD COUNT 5.42 X10'6 (4.20-5.60); RED CELL DISTRIBUTION WIDTH 18.1 % (11.5-14.5); WHITE BLOOD COUNT 6.3 X10'3 (4.5-11.0)
[2021-08-21 06:31] LABS: ALBUMIN 2.7 G/DL (3.4-5.0); ANION GAP 13 (8-16); BLOOD UREA NITROGEN 20 MG/DL (7-18); CALCIUM 8.6 MG/DL (8.5-10.1); CHLORIDE 110 MMOL/L (99-107); CREATININE 0.87 MG/DL (0.40-0.90); GLUCOSE 113 MG/DL (70-104); POTASSIUM 3.5 MMOL/L (3.5-5.1); SODIUM 144 MMOL/L (135-145); TOTAL CARBON DIOXIDE 21.1 MMOL/L (24-32); eGFR 62 ML/MIN
[2021-08-21 07:24] LABS: MAGNESIUM 2.5 MG/DL (1.5-2.4)
[2021-08-21] MEDS: CALCITONIN NASAL SPRAY BOTHNARES SCH (08:00)
[2021-08-21] MEDS: K and/or MAG REPLACEMENT MC SCH ×2 (08:00→20:00)
[2021-08-21] MEDS: pantoprazole 40mg Tablet.DR PO SCH (10:16)
[2021-08-21] MEDS: losartan 50mg tablet PO SCH (10:16)
[2021-08-21] MEDS: ciprofloxacin 250mg tablet PO SCH ×2 (10:16→21:18)
[2021-08-21] MEDS: atorvastatin 20mg tablet PO SCH (10:16)
[2021-08-21] MEDS: furosemide 20MG tablet PO SCH (10:17)
[2021-08-21] MEDS: metroNIDAZOLE 500mg tablet PO SCH ×2 (10:17→20:17)
[2021-08-21] MEDS: potassium chloride 10mEq ER tablet PO SCH ×2 (10:18→20:16)
[2021-08-21] MEDS: psyllium seed 3.4 gm packet PO SCH ×2 (10:18→16:29)
[2021-08-21] MEDS: hyDRALAzine 10mg tablet PO SCH ×3 (10:18→16:29)
[2021-08-21] MEDS: CefTRIAXone 2gm/NS 100ml IVPB 100 ML IV SCH (10:19)
[2021-08-21] MEDS: lactose-reduced food (Ensure High Protein) 237ml bottle PO SCH ×3 (13:00→19:00)
--- NOTE | 2021-08-21 14:09 | NUR ---
Per RN pt having weakness and requiring assistance with meals. RN agrees pt would benefit from sippy cup with meals, d/w dietary. Pt s/p MBS this morning with ST [facility] to continue pureed food with nectar thick liquids. Will continue to follow closely. Addendum: 08/21/21 at [address] Amended: Links added.
[2021-08-21] MEDS: amLODIPine 5mg tablet PO SCH (16:00)
[2021-08-21] MEDS: latanoprost 0.005% 2.5ml ophthalmic drops EACHEYE SCH (21:18)
[2021-08-21] MEDS: potassium cl 20mEq in 1/2 NS 1,000 ML IV SCH (22:19)
[2021-08-22] VITALS (24 sets, daily range): BP systolic 107–144; BP diastolic 47–69
[2021-08-22] MEDS: hyDRALAzine 10mg tablet PO SCH ×3 (00:39→16:00)
[2021-08-22] MEDS: niCARDipine-NS 40mg/200ml IVPB 200 ML IV SCH ×3 (05:57→22:10)
[2021-08-22 07:08] LABS: BASOPHILS % (AUTO) 0.4 % (0-1); EOSINOPHILS # (AUTO) 0.8 X10'3 (0-0.9); EOSINOPHILS % (AUTO) 9.8 % (0-6); HEMATOCRIT 46.5 % (35.0-45.0); HEMOGLOBIN 15.1 g/dl (12.0-16.0); LYMPHOCYTES # (AUTO) 0.9 X10'3 (1.1-4.8); LYMPHOCYTES % (AUTO) 11.3 % (21-51); MEAN CORPUSCULAR HGB CONC 32.5 g/dL (33.0-36.5); MEAN CORPUSCULAR VOLUME 86.2 FL (78-98); MEAN PLATELET VOLUME 7.5 FL (7.4-10.4); MONOCYTES % (AUTO) 11.9 % (2-12); NEUTROPHILS # (AUTO) 5.4 X10'3 (1.8-7.7); NEUTROPHILS % (AUTO) 66.6 % (42-75); PLATELET COUNT 362 X10'3 (140-440); RED CELL DISTRIBUTION WIDTH 18.3 % (11.5-14.5); WHITE BLOOD COUNT 8.1 X10'3 (4.5-11.0)
[2021-08-22 07:35] LABS: ALBUMIN 2.7 G/DL (3.4-5.0); ANION GAP 11 (8-16); BLOOD UREA NITROGEN 23 MG/DL (7-18); BUN/CREATININE RATIO 24.5 (6.6-38.0); CALCIUM 8.1 MG/DL (8.5-10.1); CHLORIDE 115 MMOL/L (99-107); CREATININE 0.94 MG/DL (0.40-0.90); GLUCOSE 110 MG/DL (70-104); MAGNESIUM 2.4 MG/DL (1.5-2.4); POTASSIUM 4.3 MMOL/L (3.5-5.1); SODIUM 146 MMOL/L (135-145); TOTAL CARBON DIOXIDE 20.3 MMOL/L (24-32); eGFR 57 ML/MIN
[2021-08-22 07:47] LABS: ANISOCYTOSIS 2+; PLATELET ESTIMATE NORMAL; TOTAL CELLS COUNTED 100
[2021-08-22] MEDS: K and/or MAG REPLACEMENT MC SCH ×2 (08:00→20:00)
[2021-08-22] MEDS: CALCITONIN NASAL SPRAY BOTHNARES SCH (08:00)
[2021-08-22] MEDS: lactose-reduced food (Ensure High Protein) 237ml bottle PO SCH ×3 (08:00→18:00)
[2021-08-22] MEDS: losartan 50mg tablet PO SCH (09:17)
[2021-08-22] MEDS: atorvastatin 20mg tablet PO SCH (09:17)
[2021-08-22] MEDS: ciprofloxacin 250mg tablet PO SCH (09:17)
[2021-08-22] MEDS: HYDROcodone/acetaminophen 5mg/325mg tablet PO PRN (09:18)
[2021-08-22] MEDS: metroNIDAZOLE 500mg tablet PO SCH ×2 (09:18→20:40)
[2021-08-22] MEDS: potassium chloride 10mEq ER tablet PO SCH ×2 (09:18→20:40)
[2021-08-22] MEDS: furosemide 20MG tablet PO SCH (09:18)
[2021-08-22] MEDS: amLODIPine 5mg tablet PO SCH (09:19)
[2021-08-22] MEDS: psyllium seed 3.4 gm packet PO SCH ×2 (09:20→17:00)
[2021-08-22] MEDS: pantoprazole 40mg Tablet.DR PO SCH (09:22)
[2021-08-22] MEDS: CefTRIAXone 2gm/NS 100ml IVPB 100 ML IV SCH (09:23)
[2021-08-22] MEDS: potassium cl 20mEq in 1/2 NS 1,000 ML IV SCH ×2 (13:00→18:37)
[2021-08-22] MEDS ORDERED: ciprofloxacin 0.3% 2.5ml ophthalmic solution EACHEYE ONE (15:20)
--- NOTE | 2021-08-22 18:50 | NUR ---
Phone call to [facility] patient receiving department: [phone]. Spoke with Anay who is working on patients case. Per Anay she needs patients discharge summary faxed to [phone]. Summary faxed.
--- NOTE | 2021-08-22 19:00 | NUR ---
Patient is awakens to her name, is alert and oriented. Right facial droop noted with right upper extremities weakness noted. Neuro exam completed and charted in interventions. Patient c/o mild pain to her abdomen, diffuse patient relates "this is not new". Patient c/o pain to right eye that is reddened sclera. Pupils are equal and reactive bilaterally.
--- NOTE | 2021-08-22 19:24 | NUR ---
Patient in room CICU 2009. I have received report from DERECK Magdaleno and had the opportunity to ask questions and assume patient care. Patient with her , sister, and brother in law at bedside. Patient is resting comfortably. Patient awakens easily and drifts back to sleep.
--- NOTE | 2021-08-22 19:56 | NUR ---
Called [facility] back. confirmed that they received discharge.
--- NOTE | 2021-08-22 20:27 | NUR ---
Patient report given to DERECK Rodríguez at [facility]. Room assignment received for Mateusz Myers [facility] 6 ICU, room 6437 neuro/ critical/ trauma ICU.
[2021-08-22] MEDS: latanoprost 0.005% 2.5ml ophthalmic drops EACHEYE SCH (20:41)
[2021-08-22] MEDS ORDERED: ciprofloxacin lact 400MG/200ML 200 ML IV SCH (21:00)
--- NOTE | 2021-08-22 21:02 | NUR ---
During med pass of Flagyl and Klor-con 10 mEq patient had difficulty swallowing when medications were crushed and placed in a spoonful of yogurt. Patient did okay with nectar think water before medication administration. Dr. Shelton called and advised of the difficulty patient had. Per okjc to change Cipro PO to IV 400mg BID. and PO Hydralazine 10mg to Hydralazine 10 mg IV every 8 hours.
--- NOTE | 2021-08-22 22:05 | NUR ---
Patient's Mateusz Yates called to notify of approval for flight to [facility]. Information on room number 6486 given to him. Advised that she would not be leaving here until sometime close to midnight.
[2021-08-23] VITALS: BP 129/52
[2021-08-23] MEDS ORDERED: hydrALAZINE 20mg/ml inj. IV SCH
--- NOTE | 2021-08-23 00:16 | NUR ---
0000: Report to flight nurse Margarita and flight team. Patient transferred to ambulance [facility] without incident. Flight team placed patient on their monitor. Patient left with flight crew at 0016.
--- NOTE | 2021-08-23 00:17 | NUR ---
Update called to DERECK Rodríguez at [facility] as requested.
== END 2021-08-23 00:45 | disposition short-term general hospital (02) | DRG 64 ==
LOC: ER 12:16 → ED HOLD 21:30 → SUR 3N 23:16 → OBSVTOIN 08-16 10:00 → MED 3N 08-16 19:55 → SUR 3N 08-19 20:25 → CICU 2S 08-20 20:25
PROVIDERS: ADMIT Internal Medicine; ATTEND Family Medicine
PROC: B3251ZZ Computerized Tomography (CT Scan) of Bilateral Common Carotid Arteries using Low Osmolar Contrast (ICD-10-PCS; principal; 2021-08-16)
PROC: B32G1ZZ Computerized Tomography (CT Scan) of Bilateral Vertebral Arteries using Low Osmolar Contrast (ICD-10-PCS; 2021-08-16)
PROC: B32R1ZZ Computerized Tomography (CT Scan) of Intracranial Arteries using Low Osmolar Contrast (ICD-10-PCS; 2021-08-16)
PROC: B3281ZZ Computerized Tomography (CT Scan) of Bilateral Internal Carotid Arteries using Low Osmolar Contrast (ICD-10-PCS; 2021-08-16)
DX: I61.3 Nontraumatic intracerebral hemorrhage in brain stem (principal); I77.74 Dissection of vertebral artery; I16.9 Hypertensive crisis, unspecified; N39.0 Urinary tract infection, site not specified; G81.94 Hemiplegia, unspecified affecting left nondominant side; K52.9 Noninfective gastroenteritis and colitis, unspecified; Z66 Do not resuscitate; K62.89 Other specified diseases of anus and rectum; R47.1 Dysarthria and anarthria; R29.810 Facial weakness; Z20.822 Contact with and (suspected) exposure to COVID-19; K59.00 Constipation, unspecified; E87.6 Hypokalemia; I10 Essential (primary) hypertension; R13.10 Dysphagia, unspecified; Z85.72 Personal history of non-Hodgkin lymphomas; Z88.8 Allergy status to other drugs, medicaments and biological substances; Z88.2 Allergy status to sulfonamides; Z79.899 Other long term (current) drug therapy; B96.20 Unspecified Escherichia coli [E. coli] as the cause of diseases classified elsewhere; B96.4 Proteus (mirabilis) (morganii) as the cause of diseases classified elsewhere; B95.2 Enterococcus as the cause of diseases classified elsewhere; I78.0 Hereditary hemorrhagic telangiectasia
CPT/HCPCS: 36415; 70450; 70496; 70498; 70544; 74176; 74230; 80048; 80053; 80061; 80305; 80320; 81001; 81025; 82140; 82948; 83605; 83690; 83735; 84145; 84443; 85007; 85025; 85651; 87040; 87077; 87081; 87088; 87186; 87502; 87503; 87635; 92508; 92616; 93306; 97110; 97162; 97530; 99285; C9803; G0378; J0360; J0696; J0744; J0780; J1644; J1885; J1940; J2270; J2405; J3480; J3490; J7030; Q9967

== ENCOUNTER 2023-05-04 10:01 | Inpatient (IN) | payer MEDICARE, OTHER ==
[~2023-05-04] VITALS: Ht 162.6 cm; Wt 101.7 kg
[~2023-05-04 10:01] MED LIST changes: +ACET-1995 PO; -ACET-812 PO; -AMLO1CAP77 PO; +AMLO5TAB16 PO; -BIFI4CAP PO; -BIOT5TAB PO; -CALC-499 PO; -CHOL100046 PO; -DIAZ5TAB PO; -DOCU-348 PO; -ESOM40CA49 PO; +FLUO20CA39 PO; -FURO-149 PO; +FURO40TA4 PO; +GABA-530 PO; -HYDR-4383 PO; -IRON SUPPLEMENT; +LACT1CAP26 PO; -LOPE-190; -LORA1TAB PO; +LOSA-416 PO; -LOSA25TA96 PO; -LOSA50TA3 PO; -MYLANTA; -ONDA4TAB6 PO; +PANT40TA54 PO; -POTA10TA15 PO; +PRAM0.5T12 PO; -PREVCR VG; +QUET100T34 PO; +TRAZ-251 PO; -[UNRECOGNIZED DRUG - CODE] PO
[2023-05-04 11:26] LABS: BASOPHILS % (AUTO) 0.2 % (0-1); EOSINOPHILS # (AUTO) 0.3 X10'3 (0-0.9); EOSINOPHILS % (AUTO) 2.2 % (0-6); HEMATOCRIT 46.2 % (35.0-45.0); HEMOGLOBIN 14.8 g/dl (12.0-16.0); LYMPHOCYTES # (AUTO) 0.5 X10'3 (1.1-4.8); LYMPHOCYTES % (AUTO) 4.4 % (21-51); MEAN CORPUSCULAR HEMOGLOBIN 27.2 PG (27.0-31.0); MEAN CORPUSCULAR HGB CONC 32.1 g/dL (33.0-36.5); MEAN CORPUSCULAR VOLUME 84.6 FL (78-98); MEAN PLATELET VOLUME 7.4 FL (7.4-10.4); NEUTROPHILS # (AUTO) 10.3 X10'3 (1.8-7.7); NEUTROPHILS % (AUTO) 85.2 % (42-75); PLATELET COUNT 307 X10'3 (140-440); RED BLOOD COUNT 5.46 X10'6 (4.20-5.60); RED CELL DISTRIBUTION WIDTH 17.9 % (11.5-14.5); WHITE BLOOD COUNT 12.1 X10'3 (4.5-11.0)
[2023-05-04 11:40] LABS: ALANINE AMINOTRANSFERASE 17 U/L (12-78); ALBUMIN 3.3 G/DL (3.4-5.0); ALBUMIN/GLOBULIN RATIO 0.6 (1.1-1.5); ALKALINE PHOSPHATASE 81 IU/L (46-116); ANION GAP 7 (8-16); ASPARTATE AMINO TRANSFERASE 20 U/L (10-37); BILIRUBIN,TOTAL 0.3 MG/DL (0.1-1.0); BILIRUBIN,URINE NEGATIVE (Neg); BLOOD UREA NITROGEN 69 MG/DL (7-18); BUN/CREATININE RATIO 29.6 (10.0-20.0); CALCIUM 9.5 MG/DL (8.5-10.1); CHLORIDE 98 MMOL/L (99-107); CLARITY,URINE SLIGHTLY CLOUDY (Clear); COLOR,URINE YELLOW (Yellow); CREATININE 2.33 MG/DL (0.40-0.90); GLUCOSE 113 MG/DL (70-104); GLUCOSE, URINE NEGATIVE (Neg); KETONES,URINE NEGATIVE (Neg); LEUKOCYTE ESTERASE ,URINE SMALL (Neg); NITRITES, URINE NEGATIVE (Neg); OCCULT BLOOD,URINE TRACE-INTACT (Neg); POTASSIUM 4.8 MMOL/L (3.5-5.1); PROTEIN,URINE NEGATIVE (Neg); SODIUM 134 MMOL/L (135-145); TOTAL CARBON DIOXIDE 28.8 MMOL/L (24-32); TOTAL PROTEIN 8.8 G/DL (6.4-8.2); UROBILINOGEN,URINE 0.2 E.U/dL (0.2-1.0); eCRCL 16 ML/MIN; eGFR 20 ML/MIN
[2023-05-04 12:04] LABS: UA COLLECTION TYPE FOLEY CATH
[2023-05-04 12:11] LABS: SQUAMOUS EPITHELIAL CELL,UR MODERATE /LPF (FEW); WBC,URINE 20-30 /HPF (0-4)
[2023-05-04 12:13] LABS: TRANSITIONAL EPI CELLS,URINE FEW /HPF; WBC CLUMPS,URINE FEW /HPF (NEGATIVE)
[2023-05-04] MEDS ORDERED: CefTRIAXone/D5W-Rocephin 1gm 50 ML IV STA (12:21)
[2023-05-04] MEDS ORDERED: potassium Cl 40MEQ/1/2NS 520ml 520 ML IV PRN (14:25)
[2023-05-04] MEDS ORDERED: potassium Cl 20 mEq SR tablet PO PRN ×2 (14:25)
[2023-05-04] MEDS ORDERED: magnesium 4gm in 100ml NS 100 ML IV PRN (14:25)
[2023-05-04] MEDS ORDERED: acetaminophen 325mg tablet PO PRN (14:25)
[2023-05-04] MEDS ORDERED: magnesium 2GM in 50ml NS 50 ML IV PRN (14:25)
[2023-05-04] MEDS ORDERED: magnesium Cl slow-release 64mg tablet PO PRN (14:25)
[2023-05-04] MEDS: normal saline 1000ml 1,000 ML IV SCH (14:52)
[2023-05-04 14:56] LABS: BACTERIA,URINE FEW /HPF (Neg)
[2023-05-04 15:10] LABS: MAGNESIUM 2.7 MG/DL (1.5-2.4); POTASSIUM 5.2 MMOL/L (3.5-5.1)
[2023-05-04 19:00] VITALS: BP 120/51; PULSE 86; RESP 16; TEMP 97.7; O2SAT 95
[2023-05-04 20:00] VITALS: RESP 18; O2SAT 94
[2023-05-04] MEDS: K and/or MAG REPLACEMENT MC SCH (20:00)
[2023-05-04 22:00] VITALS: BP 102/69; PULSE 73; RESP 16; TEMP 97.3; O2SAT 95
[2023-05-05] VITALS (7 sets, daily range): BP systolic 108–155; BP diastolic 65–81; PULSE 75–90; RESP 11–20; TEMP 97.3–98.5; O2SAT 94–96
[2023-05-05] MEDS: morphine 2 MG/ML inj. syringe IV PRN ×4 (00:25→23:48)
[2023-05-05] MEDS: normal saline 1000ml 1,000 ML IV SCH ×3 (00:35→20:25)
[2023-05-05] MEDS: HYDROcodone/acetaminophen 5mg/325mg tablet PO PRN ×2 (04:20→09:35)
[2023-05-05] MEDS: K and/or MAG REPLACEMENT MC SCH ×2 (06:45→20:00)
[2023-05-05 06:49] LABS: BASOPHILS % (AUTO) 0.4 % (0-1); EOSINOPHILS # (AUTO) 0.3 X10'3 (0-0.9); EOSINOPHILS % (AUTO) 4.3 % (0-6); HEMATOCRIT 41.3 % (35.0-45.0); HEMOGLOBIN 13.2 g/dl (12.0-16.0); LYMPHOCYTES # (AUTO) 0.4 X10'3 (1.1-4.8); LYMPHOCYTES % (AUTO) 5.9 % (21-51); MEAN CORPUSCULAR VOLUME 84.4 FL (78-98); MEAN PLATELET VOLUME 7.1 FL (7.4-10.4); MONOCYTES # (AUTO) 0.9 X10'3 (0-0.9); NEUTROPHILS # (AUTO) 5.4 X10'3 (1.8-7.7); NEUTROPHILS % (AUTO) 76.4 % (42-75); PLATELET COUNT 295 X10'3 (140-440); RED BLOOD COUNT 4.89 X10'6 (4.20-5.60); RED CELL DISTRIBUTION WIDTH 18.1 % (11.5-14.5); WHITE BLOOD COUNT 7.1 X10'3 (4.5-11.0)
[2023-05-05 07:09] LABS: ALBUMIN 2.7 G/DL (3.4-5.0); ANION GAP 7 (8-16); BLOOD UREA NITROGEN 57 MG/DL (7-18); BUN/CREATININE RATIO 30.2 (10.0-20.0); CALCIUM 9.1 MG/DL (8.5-10.1); CHLORIDE 103 MMOL/L (99-107); CREATININE 1.89 MG/DL (0.40-0.90); GLUCOSE 102 MG/DL (70-104); MAGNESIUM 2.3 MG/DL (1.5-2.4); POTASSIUM 4.3 MMOL/L (3.5-5.1); SODIUM 139 MMOL/L (135-145); TOTAL CARBON DIOXIDE 29.3 MMOL/L (24-32); eCRCL 19 ML/MIN; eGFR 25 ML/MIN
[2023-05-05] MEDS: CefTRIAXone/D5W-Rocephin 1gm 50 ML IV SCH (07:11)
[2023-05-06] VITALS (7 sets, daily range): BP systolic 128–158; BP diastolic 55–70; PULSE 83–95; RESP 10–18; TEMP 97.7–99.2; O2SAT 90–96
[2023-05-06] MEDS ORDERED: HYDROcodone/acetaminophen 10/325mg tab PO PRN (00:10)
[2023-05-06] MEDS: morphine 2 MG/ML inj. syringe IV PRN ×3 (04:42→14:24)
[2023-05-06] MEDS: normal saline 1000ml 1,000 ML IV SCH ×2 (06:25→16:25)
[2023-05-06 07:41] LABS: BASOPHILS % (AUTO) 0.5 % (0-1); EOSINOPHILS # (AUTO) 0.3 X10'3 (0-0.9); EOSINOPHILS % (AUTO) 3.1 % (0-6); HEMATOCRIT 45.6 % (35.0-45.0); HEMOGLOBIN 14.4 g/dl (12.0-16.0); LYMPHOCYTES # (AUTO) 0.8 X10'3 (1.1-4.8); LYMPHOCYTES % (AUTO) 9.4 % (21-51); MEAN CORPUSCULAR HEMOGLOBIN 26.7 PG (27.0-31.0); MEAN CORPUSCULAR HGB CONC 31.6 g/dL (33.0-36.5); MEAN CORPUSCULAR VOLUME 84.6 FL (78-98); MEAN PLATELET VOLUME 6.7 FL (7.4-10.4); MONOCYTES # (AUTO) 1.2 X10'3 (0-0.9); MONOCYTES % (AUTO) 13.7 % (2-12); NEUTROPHILS # (AUTO) 6.3 X10'3 (1.8-7.7); NEUTROPHILS % (AUTO) 73.3 % (42-75); PLATELET COUNT 317 X10'3 (140-440); RED BLOOD COUNT 5.39 X10'6 (4.20-5.60); RED CELL DISTRIBUTION WIDTH 18.1 % (11.5-14.5); WHITE BLOOD COUNT 8.6 X10'3 (4.5-11.0)
[2023-05-06 07:51] LABS: ALBUMIN 3.3 G/DL (3.4-5.0); ANION GAP 10 (8-16); BLOOD UREA NITROGEN 45 MG/DL (7-18); CALCIUM 9.8 MG/DL (8.5-10.1); CHLORIDE 103 MMOL/L (99-107); CREATININE 1.73 MG/DL (0.40-0.90); GLUCOSE 93 MG/DL (70-104); MAGNESIUM 2.3 MG/DL (1.5-2.4); POTASSIUM 4.3 MMOL/L (3.5-5.1); SODIUM 140 MMOL/L (135-145); TOTAL CARBON DIOXIDE 27.5 MMOL/L (24-32); eCRCL 21 ML/MIN; eGFR 28 ML/MIN
[2023-05-06] MEDS: K and/or MAG REPLACEMENT MC SCH ×2 (08:00→20:24)
[2023-05-06] MEDS: CefTRIAXone/D5W-Rocephin 1gm 50 ML IV SCH (08:52)
[2023-05-06] MEDS: ondansetron/PF 4mg/2ml inj IV PRN (10:24)
[2023-05-06] MEDS: LORazepam 0.5 MG tablet PO PRN ×2 (10:25→20:20)
[2023-05-06] MEDS ORDERED: acetaminophen 325mg tablet PO PRN (14:55)
[2023-05-06] MEDS ORDERED: furosemide 40mg tablet PO SCH (20:00)
[2023-05-06] MEDS: quetiapine 100mg tablet PO SCH (20:19)
[2023-05-06] MEDS: traZODone 50mg tablet PO SCH (20:19)
[2023-05-06] MEDS: gabapentin 100mg capsule PO SCH (20:19)
[2023-05-06] MEDS: pramipexole 0.25mg tablet PO SCH (20:19)
[2023-05-06] MEDS: nystatin 15 GM powder TP SCH (20:20)
[2023-05-06] MEDS ORDERED: losartan 50mg tablet PO SCH (21:00)
[2023-05-07] VITALS (7 sets, daily range): BP systolic 104–141; BP diastolic 48–72; PULSE 58–93; RESP 11–20; TEMP 97.5–97.8; O2SAT 90–98
[2023-05-07] MEDS: normal saline 1000ml 1,000 ML IV SCH ×3 (02:25→22:33)
[2023-05-07] MEDS: K and/or MAG REPLACEMENT MC SCH ×2 (08:00→20:00)
[2023-05-07] MEDS: nystatin 15 GM powder TP SCH ×2 (08:00→20:10)
[2023-05-07] MEDS: gabapentin 100mg capsule PO SCH ×3 (09:10→20:10)
[2023-05-07] MEDS: FLUoxetine 20mg capsule PO SCH (09:10)
[2023-05-07] MEDS: amLODIPine 5mg tablet PO SCH (09:11)
[2023-05-07] MEDS: CefTRIAXone/D5W-Rocephin 1gm 50 ML IV SCH (09:12)
[2023-05-07] MEDS: pramipexole 0.25mg tablet PO SCH (20:10)
[2023-05-07] MEDS: traZODone 50mg tablet PO SCH (20:10)
[2023-05-07] MEDS: quetiapine 100mg tablet PO SCH (20:10)
[2023-05-08] VITALS (8 sets, daily range): BP systolic 121–140; BP diastolic 59–74; PULSE 75–80; RESP 9–20; TEMP 97.4–98.1; O2SAT 92–95
[2023-05-08 06:57] LABS: BASOPHILS % (AUTO) 0.7 % (0-1); EOSINOPHILS # (AUTO) 0.4 X10'3 (0-0.9); EOSINOPHILS % (AUTO) 8.6 % (0-6); HEMATOCRIT 42.4 % (35.0-45.0); HEMOGLOBIN 13.7 g/dl (12.0-16.0); LYMPHOCYTES # (AUTO) 0.6 X10'3 (1.1-4.8); MEAN CORPUSCULAR HEMOGLOBIN 27.2 PG (27.0-31.0); MEAN CORPUSCULAR HGB CONC 32.3 g/dL (33.0-36.5); MEAN CORPUSCULAR VOLUME 84.2 FL (78-98); MEAN PLATELET VOLUME 6.9 FL (7.4-10.4); MONOCYTES # (AUTO) 0.6 X10'3 (0-0.9); MONOCYTES % (AUTO) 15.2 % (2-12); NEUTROPHILS # (AUTO) 2.5 X10'3 (1.8-7.7); NEUTROPHILS % (AUTO) 61.5 % (42-75); PLATELET COUNT 267 X10'3 (140-440); RED BLOOD COUNT 5.03 X10'6 (4.20-5.60); RED CELL DISTRIBUTION WIDTH 18.2 % (11.5-14.5); WHITE BLOOD COUNT 4.1 X10'3 (4.5-11.0)
[2023-05-08 07:14] LABS: ALBUMIN 2.6 G/DL (3.4-5.0); ANION GAP 8 (8-16); BLOOD UREA NITROGEN 45 MG/DL (7-18); BUN/CREATININE RATIO 28.3 (10.0-20.0); CHLORIDE 104 MMOL/L (99-107); CREATININE 1.59 MG/DL (0.40-0.90); GLUCOSE 95 MG/DL (70-104); POTASSIUM 4.1 MMOL/L (3.5-5.1); SODIUM 139 MMOL/L (135-145); TOTAL CARBON DIOXIDE 27.5 MMOL/L (24-32); eCRCL 23 ML/MIN; eGFR 31 ML/MIN
[2023-05-08] MEDS: K and/or MAG REPLACEMENT MC SCH ×2 (08:00→20:00)
[2023-05-08 08:14] LABS: ANISOCYTOSIS 2+; PLATELET ESTIMATE NORMAL; TOTAL CELLS COUNTED 100
[2023-05-08] MEDS: normal saline 1000ml 1,000 ML IV SCH (08:14)
[2023-05-08 08:15] LABS: POLYCHROMASIA 1+; TOXIC GRANULATION 1+
[2023-05-08] MEDS: gabapentin 100mg capsule PO SCH ×3 (08:17→22:51)
[2023-05-08] MEDS: CefTRIAXone/D5W-Rocephin 1gm 50 ML IV SCH (08:17)
[2023-05-08] MEDS: FLUoxetine 20mg capsule PO SCH (08:18)
[2023-05-08] MEDS: amLODIPine 5mg tablet PO SCH (08:18)
[2023-05-08] MEDS: nystatin 15 GM powder TP SCH ×2 (08:20→20:00)
[2023-05-08] MEDS: ondansetron/PF 4mg/2ml inj IV PRN (08:55)
[2023-05-08] MEDS: amox tr/potassium clavulanate 875/125mg TAB PO SCH (17:34)
[2023-05-08] MEDS: quetiapine 100mg tablet PO SCH (22:49)
[2023-05-08] MEDS: pramipexole 0.25mg tablet PO SCH (22:50)
[2023-05-08] MEDS: traZODone 50mg tablet PO SCH (22:50)
[2023-05-09] MEDS ORDERED: PEG 400/HYPROMELLOSE/GLYCERIN 15ml bottle EACHEYE PRN (01:10)
[2023-05-09 02:00] VITALS: BP 122/67; PULSE 76; RESP 18; TEMP 97.7; O2SAT 92
[2023-05-09 07:00] VITALS: BP 125/74; PULSE 77; RESP 20; TEMP 97.9; O2SAT 97
[2023-05-09 07:24] LABS: BASOPHILS % (AUTO) 0.6 % (0-1); EOSINOPHILS # (AUTO) 0.4 X10'3 (0-0.9); EOSINOPHILS % (AUTO) 8.3 % (0-6); HEMATOCRIT 42.9 % (35.0-45.0); HEMOGLOBIN 13.8 g/dl (12.0-16.0); LYMPHOCYTES # (AUTO) 0.8 X10'3 (1.1-4.8); LYMPHOCYTES % (AUTO) 17.2 % (21-51); MEAN CORPUSCULAR HEMOGLOBIN 26.9 PG (27.0-31.0); MEAN CORPUSCULAR HGB CONC 32.2 g/dL (33.0-36.5); MEAN CORPUSCULAR VOLUME 83.7 FL (78-98); MEAN PLATELET VOLUME 6.9 FL (7.4-10.4); MONOCYTES # (AUTO) 0.7 X10'3 (0-0.9); MONOCYTES % (AUTO) 13.5 % (2-12); NEUTROPHILS % (AUTO) 60.4 % (42-75); PLATELET COUNT 280 X10'3 (140-440); RED BLOOD COUNT 5.12 X10'6 (4.20-5.60); RED CELL DISTRIBUTION WIDTH 18.2 % (11.5-14.5); WHITE BLOOD COUNT 4.9 X10'3 (4.5-11.0)
[2023-05-09 07:30] LABS: ALBUMIN 2.9 G/DL (3.4-5.0); ANION GAP 9 (8-16); BLOOD UREA NITROGEN 38 MG/DL (7-18); BUN/CREATININE RATIO 25.9 (10.0-20.0); CALCIUM 9.3 MG/DL (8.5-10.1); CHLORIDE 101 MMOL/L (99-107); CREATININE 1.47 MG/DL (0.40-0.90); GLUCOSE 85 MG/DL (70-104); POTASSIUM 4.3 MMOL/L (3.5-5.1); SODIUM 137 MMOL/L (135-145); TOTAL CARBON DIOXIDE 27.5 MMOL/L (24-32); eCRCL 25 ML/MIN; eGFR 34 ML/MIN
[2023-05-09 08:00] VITALS: RESP 18
[2023-05-09] MEDS: K and/or MAG REPLACEMENT MC SCH (08:00)
[2023-05-09] MEDS: FLUoxetine 20mg capsule PO SCH (08:09)
[2023-05-09] MEDS: gabapentin 100mg capsule PO SCH (08:09)
[2023-05-09] MEDS: amLODIPine 5mg tablet PO SCH (08:09)
[2023-05-09] MEDS: nystatin 15 GM powder TP SCH (08:10)
[2023-05-09] MEDS: amox tr/potassium clavulanate 875/125mg TAB PO SCH (08:10)
[2023-05-09 12:10] VITALS: BP 125/70; PULSE 81; RESP 20; TEMP 97.7; O2SAT 97
[2023-05-09 15:52] VITALS: BP 122/71; PULSE 83; RESP 18; TEMP 98; O2SAT 94
== END 2023-05-09 16:14 | DRG 682 ==
LOC: ER 10:02 → ED HOLD 14:26 → PCU 3S 19:07
PROVIDERS: ADMIT Internal Medicine; ATTEND Internal Medicine
DX: N17.9 Acute kidney failure, unspecified (principal); G93.41 Metabolic encephalopathy; E87.1 Hypo-osmolality and hyponatremia; N39.0 Urinary tract infection, site not specified; Z68.41 Body mass index [BMI] 40.0-44.9, adult; E87.5 Hyperkalemia; E86.0 Dehydration; Z66 Do not resuscitate; K21.9 Gastro-esophageal reflux disease without esophagitis; I10 Essential (primary) hypertension; F03.90 Unspecified dementia, unspecified severity, without behavioral disturbance, psychotic disturbance, mood disturbance, and anxiety; Z85.72 Personal history of non-Hodgkin lymphomas; Z86.73 Personal history of transient ischemic attack (TIA), and cerebral infarction without residual deficits; Z79.899 Other long term (current) drug therapy; B96.20 Unspecified Escherichia coli [E. coli] as the cause of diseases classified elsewhere; B96.4 Proteus (mirabilis) (morganii) as the cause of diseases classified elsewhere; J45.909 Unspecified asthma, uncomplicated; E78.5 Hyperlipidemia, unspecified
CPT/HCPCS: 36415; 70450; 71045; 80048; 80053; 81001; 83605; 83735; 84132; 85007; 85025; 87040; 87077; 87088; 87186; 92508; 92616; 93005; 97161; 97530; 97535; 99285; A6213; A6250; C1758; G0378; J0696; J2270; J2405; J7030

== ENCOUNTER 2023-05-24 08:37 | Emergency (ER) | payer MEDICARE, OTHER ==
[~2023-05-24] VITALS: Ht 162.6 cm; Wt 86.0 kg
[2023-05-24 13:30] LABS: BILIRUBIN,URINE NEGATIVE (Neg); CLARITY,URINE CLOUDY (Clear); COLOR,URINE STRAW (Yellow); GLUCOSE, URINE NEGATIVE (Neg); KETONES,URINE NEGATIVE (Neg); LEUKOCYTE ESTERASE ,URINE LARGE (Neg); NITRITES, URINE NEGATIVE (Neg); OCCULT BLOOD,URINE LARGE (Neg); PH,URINE 6.5 (4.8-8.0); PROTEIN,URINE 30 mg/dl (Neg); UROBILINOGEN,URINE 0.2 E.U/dL (0.2-1.0)
[2023-05-24 13:44] LABS: UA COLLECTION TYPE STRAIGHT CATH
[2023-05-24 14:08] LABS: BACTERIA,URINE FEW /HPF (Neg); WBC CLUMPS,URINE MANY /HPF (NEGATIVE)
[2023-05-24 14:12] LABS: SQUAMOUS EPITHELIAL CELL,UR MANY /LPF (FEW)
[2023-05-24 14:13] LABS: WBC,URINE 30-50 /HPF (0-4)
[2023-05-24 14:35] VITALS: O2SAT 96
[2023-05-24] MEDS ORDERED: NYST30CR35 TOP (14:49)
[2023-05-24] MEDS ORDERED: CEFD300C3 PO (14:49)
[2023-05-24 15:32] VITALS: BP 110/62; PULSE 70; RESP 16; TEMP 97.9
[2023-05-24] MEDS ORDERED: NYSTATIN 30 GM POWDER TP SCH (21:00)
== END 2023-05-24 15:35 | disposition home or self-care (01) ==
LOC: ER 08:38
DX: B37.9 Candidiasis, unspecified (principal); N39.0 Urinary tract infection, site not specified; I10 Essential (primary) hypertension; Z86.73 Personal history of transient ischemic attack (TIA), and cerebral infarction without residual deficits; Z88.8 Allergy status to other drugs, medicaments and biological substances; Z91.018 Allergy to other foods; Z88.2 Allergy status to sulfonamides; Z79.899 Other long term (current) drug therapy
CPT/HCPCS: 81001; 87088; 99285; C1758

== ENCOUNTER 2023-10-08 17:57 | Emergency (ER) | payer MEDICARE, OTHER ==
[~2023-10-08] VITALS: Ht 162.6 cm; Wt 113.6 kg
[~2023-10-08 17:57] MED LIST changes: +NYST30CR35 TOP
[2023-10-08 18:07] VITALS: BP 116/56; PULSE 83; RESP 16; O2SAT 94
[2023-10-08 18:47] LABS: BILIRUBIN,URINE NEGATIVE (Neg); COLOR,URINE YELLOW (Yellow); GLUCOSE, URINE NEGATIVE (Neg); KETONES,URINE NEGATIVE (Neg); LEUKOCYTE ESTERASE ,URINE MODERATE (Neg); NITRITES, URINE NEGATIVE (Neg); OCCULT BLOOD,URINE SMALL (Neg); PROTEIN,URINE TRACE mg/dl (Neg); UROBILINOGEN,URINE 0.2 E.U/dL (0.2-1.0)
[2023-10-08 18:49] LABS: CLARITY,URINE CLOUDY (Clear); UA COLLECTION TYPE FOLEY CATH
[2023-10-08 18:55] LABS: BACTERIA,URINE 4+ /HPF (Neg); MUCUS STRANDS NONE SEEN /LPF (Neg); SQUAMOUS EPITHELIAL CELL,UR FEW /LPF (FEW); WBC,URINE 50-100 /HPF (0-4)
[2023-10-08 18:56] LABS: TRANSITIONAL EPI CELLS,URINE FEW /HPF; WBC CLUMPS,URINE FEW /HPF (NEGATIVE)
[2023-10-08 19:05] VITALS: TEMP 98.3
[2023-10-09] MEDS ORDERED: CEPH-585 PO (01:58)
== END 2023-10-08 19:10 | disposition left against medical advice (07) ==
LOC: ER 17:58
DX: R10.31 Right lower quadrant pain (principal); Z88.8 Allergy status to other drugs, medicaments and biological substances; Z86.73 Personal history of transient ischemic attack (TIA), and cerebral infarction without residual deficits; I10 Essential (primary) hypertension; F03.90 Unspecified dementia, unspecified severity, without behavioral disturbance, psychotic disturbance, mood disturbance, and anxiety
CPT/HCPCS: 74176; 81001; 99284

== ENCOUNTER 2023-10-08 22:46 | Emergency (ER) | payer MEDICARE, OTHER, MEDICAID ==
[~2023-10-08] VITALS: Ht 162.6 cm; Wt 90.9 kg
[2023-10-08 23:02] VITALS: TEMP 98
[2023-10-08] MEDS: cephalexin 250mg capsule PO ONE (23:52)
[2023-10-09 00:30] VITALS: O2SAT 90
[2023-10-09 01:00] VITALS: RESP 11
[2023-10-09 01:36] VITALS: BP 116/53; PULSE 85
[2023-10-09] MEDS ORDERED: CEPH-585 PO (01:58)
== END 2023-10-09 02:00 | disposition left against medical advice (07) ==
LOC: ER 22:47
DX: N39.0 Urinary tract infection, site not specified (principal); R10.9 Unspecified abdominal pain; I10 Essential (primary) hypertension; Z88.2 Allergy status to sulfonamides; Z88.6 Allergy status to analgesic agent; Z88.8 Allergy status to other drugs, medicaments and biological substances; Z91.018 Allergy to other foods
CPT/HCPCS: 99285

== ENCOUNTER 2023-10-28 16:02 | Emergency (ER) | payer MEDICARE, OTHER ==
[~2023-10-28] VITALS: Ht 162.6 cm; Wt 181.8 kg
[2023-10-28] MEDS: normal saline 1000ML IV soln IV ONE (16:10)
[2023-10-28 17:34] LABS: BASOPHILS % (AUTO) 0.2 % (0-1); EOSINOPHILS # (AUTO) 0.1 X10'3 (0-0.9); EOSINOPHILS % (AUTO) 1.3 % (0-6); HEMATOCRIT 50.1 % (35.0-45.0); HEMOGLOBIN 16.1 g/dl (12.0-16.0); LYMPHOCYTES # (AUTO) 0.5 X10'3 (1.1-4.8); LYMPHOCYTES % (AUTO) 4.6 % (21-51); MEAN CORPUSCULAR HEMOGLOBIN 28.1 PG (27.0-31.0); MEAN CORPUSCULAR HGB CONC 32.2 g/dL (33.0-36.5); MEAN CORPUSCULAR VOLUME 87.4 FL (78-98); MONOCYTES # (AUTO) 0.6 X10'3 (0-0.9); MONOCYTES % (AUTO) 5.2 % (2-12); NEUTROPHILS # (AUTO) 9.6 X10'3 (1.8-7.7); NEUTROPHILS % (AUTO) 88.7 % (42-75); PLATELET COUNT 307 X10'3 (140-440); RED BLOOD COUNT 5.73 X10'6 (4.20-5.60); RED CELL DISTRIBUTION WIDTH 16.8 % (11.5-14.5); WHITE BLOOD COUNT 10.8 X10'3 (4.5-11.0)
[2023-10-28 17:37] LABS: ALANINE AMINOTRANSFERASE 14 U/L (12-78); ALBUMIN 3.4 G/DL (3.4-5.0); ALBUMIN/GLOBULIN RATIO 0.6 (1.1-1.5); ALKALINE PHOSPHATASE 91 IU/L (46-116); ANION GAP 11 (8-16); ASPARTATE AMINO TRANSFERASE 15 U/L (10-37); BILIRUBIN,TOTAL 0.4 MG/DL (0.1-1.0); BLOOD UREA NITROGEN 55 MG/DL (7-18); BUN/CREATININE RATIO 24.7 (10.0-20.0); CALCIUM 9.3 MG/DL (8.5-10.1); CHLORIDE 97 MMOL/L (99-107); CREATININE 2.23 MG/DL (0.40-0.90); GLUCOSE 138 MG/DL (70-104); MAGNESIUM 2.4 MG/DL (1.5-2.4); POTASSIUM 3.9 MMOL/L (3.5-5.1); SODIUM 135 MMOL/L (135-145); TOTAL CARBON DIOXIDE 27.5 MMOL/L (24-32); TOTAL PROTEIN 8.8 G/DL (6.4-8.2); eCRCL 16 ML/MIN; eGFR 21 ML/MIN
[2023-10-28 18:32] LABS: BILIRUBIN,URINE NEGATIVE (Neg); CLARITY,URINE TURBID (Clear); COLOR,URINE YELLOW (Yellow); GLUCOSE, URINE NEGATIVE (Neg); KETONES,URINE NEGATIVE (Neg); LEUKOCYTE ESTERASE ,URINE LARGE (Neg); NITRITES, URINE NEGATIVE (Neg); OCCULT BLOOD,URINE MODERATE (Neg); PROTEIN,URINE 30 mg/dl (Neg); UROBILINOGEN,URINE 0.2 E.U/dL (0.2-1.0)
[2023-10-28] MEDS ORDERED: POLY119P2 PO (18:33)
[2023-10-28 18:41] LABS: UA COLLECTION TYPE NON-SPECIFIED
[2023-10-28 18:42] LABS: SQUAMOUS EPITHELIAL CELL,UR FEW /LPF (FEW)
[2023-10-28 18:43] LABS: MUCUS STRANDS FEW /LPF (Neg); WBC,URINE 30-50 /HPF (0-4)
[2023-10-28 18:46] LABS: BACTERIA,URINE 4+ /HPF (Neg); TRIPLE PHOSPHATE CRYST 4+ /HPF (NEGATIVE)
[2023-10-28 18:47] LABS: WBC CLUMPS,URINE FEW /HPF (NEGATIVE)
[2023-10-28] MEDS: mineral oil 133ml enema RC STA (19:07)
[2023-10-28 20:46] VITALS: BP 161/83; PULSE 86; RESP 16; TEMP 97.6; O2SAT 96
== END 2023-10-28 20:52 | disposition home or self-care (01) ==
LOC: ER 16:03
DX: K59.00 Constipation, unspecified (principal); Z88.8 Allergy status to other drugs, medicaments and biological substances; Z88.2 Allergy status to sulfonamides; Z91.018 Allergy to other foods; Z79.899 Other long term (current) drug therapy; I10 Essential (primary) hypertension
CPT/HCPCS: 36415; 71045; 74176; 80053; 81001; 83735; 84145; 85025; 87077; 87088; 87186; 96360; 96361; 99284; J7030